=== PATIENT | male | born 1965 | race Caucasian/White ===

== ENCOUNTER → 2018-07-04 | Day surgery (SDC) | payer BC ==
[~2018-07-04] VITALS: Ht 175.3 cm; Wt 116.6 kg
[2018-07-04] VITALS (8 sets, daily range): BP systolic 82–139; BP diastolic 79–90
[~2018-07-04] MED LIST: EXFORGE 10-1601 EACH PO; FENTANYL CITRATE/PF 100MCG/2 ML INJ ONE; LEVOFLOXACIN 500MG/D5W 100ML 100 ML IV ONE; LIDOCAINE HCL 2% LOCAL 20 ML VIAL ONE; MIDAZOLAM HCL 2 MG/2 ML VIAL ONE; SODIUM CHLORIDE 0.9% 1000ML 2,000 ML ONE; SODIUM CHLORIDE 0.9% 500ML 500 ML ONE
--- NOTE | 2018-07-04 12:47 | Diagnostic Imaging Report ---
PROCEDURE:ULTRASOUND GUIDANCE FOR PROCEDURE COMPARISON:None. INDICATIONS:suprapubic catheter placement FINDINGS: Ultrasound was used to identify the bladder and an indwelling urethral Nunes catheter. Ultrasound guidance was used to place a primary suprapubic catheter. FINDINGS: Ultrasound guided placement of primary suprapubic catheter. Please refer to the suprapubic catheter procedural report for further details. Dictated by: KASIA FAROOQ M.D. on 07/04/2018 at 12:53 Electronically approved by: KASIA FAROOQ M.D. on 07/04/2018 at 12:53
--- NOTE | 2018-07-04 14:03 | Diagnostic Imaging Report ---
PROCEDURE:Suprapubic catheter placement with ultrasound and fluoroscopic guidance COMPARISON:None. INDICATIONS:Not provided. PIN INSERTER: Dr. Mirella Farooq MEDICATIONS: IV Levofloxacin 500 mg; Fentanyl and Versed per nursing administration records; 10 cc of 1% subcutaneous lidocaine SEDATION: Conscious sedation. Continuous hemodynamic monitoring was performed by the labor relations officer nursing. FINDINGS: Informed consent was obtained. Initial ultrasound demonstrated a partially decompressed bladder. The patient was prepped and draped in sterile fashion. Approximately 200 cc of normal saline was instilled through the urethral Nunes catheter. Repeat ultrasound demonstrated increased distension of the bladder and a satisfactory sonographic window. Local anesthesia with 1% subcutaneous lidocaine was administered. Subsequently, a 16 Fr suprapubic catheter was advanced via direct trochar technique into the bladder with ultrasound guidance. The inner trochar was removed. The balloon was inflated with 4 cc of normal saline. Contrast injection with fluoroscopic guidance demonstrated satisfactory positioning in the bladder. Satisfactory catheter positioning was also confirmed on ultrasound. The catheter was additionally secured with a Monocryl suture. Sterile dressing was placed. The catheter was connected to a urinary bag. The urethral Nunes catheter was removed upon conclusion of the procedure. CONCLUSION: Primary suprapubic catheter placement with ultrasound and fluoroscopic guidance as above. PLAN: Follow-up per Urology team. Catheter exchange in 2-3 months or as per protocol. Dictated by: MIRELLA FAROOQ M.D. on 07/04/2018 at 14:09 Electronically approved by: MIRELLA FAROOQ M.D. on 07/04/2018 at 14:09
== END | disposition home or self-care (01) ==
LOC: CATH LAB 08:22 → EDSTATUS 11:00
PROVIDERS: ATTEND Radiology Diagnostic Radiology
DX: R33.8 Other retention of urine (principal); N31.9 Neuromuscular dysfunction of bladder, unspecified
CPT/HCPCS: 51102; 76942; C1769; J1956; J2001; J2250; J7030; J7040; 77001

== ENCOUNTER 2018-07-18 17:31 | Emergency (ER) | payer BC ==
[~2018-07-18] VITALS: Ht 175.3 cm; Wt 113.4 kg
[~2018-07-18 17:31] MED LIST changes: -FENTANYL CITRATE/PF 100MCG/2 ML INJ ONE; -LEVOFLOXACIN 500MG/D5W 100ML 100 ML IV ONE; -LIDOCAINE HCL 2% LOCAL 20 ML VIAL ONE; -MIDAZOLAM HCL 2 MG/2 ML VIAL ONE; -SODIUM CHLORIDE 0.9% 1000ML 2,000 ML ONE; -SODIUM CHLORIDE 0.9% 500ML 500 ML ONE
[2018-07-18 18:58] LABS: BILIRUBIN,URINE NEGATIVE (NEGATIVE); CLARITY,URINE CLEAR (CLEAR); COLOR,URINE YELLOW (YELLOW); KETONES,URINE NEGATIVE (NEGATIVE); LEUKOCYTE ESTERASE ,URINE NEGATIVE (NEGATIVE); NITRITE,URINE NEGATIVE (NEGATIVE); PROTEIN,URINE DIPSTICK 2+ (NEGATIVE); URINE UROBILINOGEN 0.2 mg/dL (0.2 - 1)
[2018-07-18 19:21] LABS: RBC,URINE >50 /HPF (0-5)
[2018-07-18 19:31] VITALS: BP 134/83
== END 2018-07-18 19:33 | disposition home or self-care (01) ==
LOC: ER 17:31
DX: R33.9 Retention of urine, unspecified (principal); N31.9 Neuromuscular dysfunction of bladder, unspecified
CPT/HCPCS: 81001; 87086; 99284

== ENCOUNTER 2018-08-11 14:04 | Emergency (ER) | payer BC ==
[~2018-08-11] VITALS: Ht 175.3 cm; Wt 113.4 kg
[2018-08-11] MEDS ORDERED: DIATRIZOATE MEGL/DIATRIZOA SOD 30 ML BTL PO ONE (15:15)
--- NOTE | 2018-08-11 15:43 | Diagnostic Imaging Report ---
Frontal radiograph of the pelvis - 1 view HISTORY: Pain. Nunes catheter COMPARISON: None available. FINDINGS: Bones: No acute displaced fracture. Osseous alignment is within normal limits. Joints: Scattered degenerative change. Soft tissues: Catheter over the right pelvis and midline pelvis. The portion of the catheter over the midline pelvis is surrounded by contrast material likely within the urinary bladder. IMPRESSION: Catheter over the right pelvis and midline pelvis. The portion of the catheter over the midline pelvis is surrounded by contrast material likely within the urinary bladder. Signed by: Dr. Coy Layne M.D. on 08/11/2018 3:39 PM
[2018-08-11] MEDS ORDERED: LIDOCAINE 2% /EPINEPHRINE 20 ML SDV INJ ONE (16:25)
[2018-08-11] MEDS ORDERED: LIDOCAINE VISC 2% SOLN 15 ML UDC ONE (16:27)
[2018-08-11] MEDS ORDERED: LIDOCAINE/PRILOCAINE 2.5-2.5% KIT ONE (16:27)
[2018-08-11] MEDS ORDERED: LIDOCAINE JELLY 2% 10ML URO-JET TOP ONE (16:30)
[2018-08-11] MEDS ORDERED: LIDOCAINE VISC 2% SOLN 15 ML UDC PO ONE (16:30)
[2018-08-11] MEDS ORDERED: HYDROCODONE/APAP 10MG-325MG TAB PO ONE (17:00)
[2018-08-11] MEDS ORDERED: KETOROLAC TROMETHAMINE 60 MG/2 ML VIAL IM ONE (17:00)
[2018-08-11 17:35] VITALS: BP 125/83
[2018-08-11 17:57] LABS: BILIRUBIN,URINE NEGATIVE (NEGATIVE); CLARITY,URINE SL CLOUDY (CLEAR); COLOR,URINE YELLOW (YELLOW); KETONES,URINE NEGATIVE (NEGATIVE); LEUKOCYTE ESTERASE ,URINE TRACE (NEGATIVE); NITRITE,URINE NEGATIVE (NEGATIVE); PROTEIN,URINE DIPSTICK 1+ (NEGATIVE); URINE UROBILINOGEN 0.2 mg/dL (0.2 - 1)
[2018-08-11 17:58] LABS: WBC,URINE (MAN) 0-5 /HPF (0-5)
== END 2018-08-11 18:07 | disposition home or self-care (01) ==
LOC: ER 14:04
DX: Z48.00 Encounter for change or removal of nonsurgical wound dressing (principal)
CPT/HCPCS: 51702; 72170; 81001; 99283; J1885; J2001

== ENCOUNTER 2018-11-05 05:48 | Emergency (ER) | payer OTHER ==
[~2018-11-05] VITALS: Ht 175.3 cm; Wt 113.4 kg
[2018-11-05] MEDS ORDERED: SODIUM CHLORIDE 0.9% 1000ML 1,000 ML IV ONE (06:15)
[2018-11-05] MEDS ORDERED: ACETAMINOPHEN 1000 MG/100 ML IV ONE (06:15)
[2018-11-05 06:31] LABS: BASOPHILS % 0.1 % (0.0-1.0); EOSINOPHILS % 0.5 % (0.0-6.0); HEMATOCRIT 40.4 % (38.2-49.6); HEMOGLOBIN 14.4 g/dL (14.0-18.0); LYMPHOCYTES # (AUTO) 1.5 (1.0-3.2); LYMPHOCYTES % 19.8 % (18.0-39.1); MEAN CORPUSCULAR HEMOGLOBIN 31.3 pg (28-32); MEAN CORPUSCULAR HGB CONC 35.6 g/dL (31-35); MEAN CORPUSCULAR VOLUME 87.8 fL (81-99); MONOCYTES # (AUTO) 0.4 (0.2-0.8); MONOCYTES % 5.7 % (4.4-11.3); NEUTROPHILS # (AUTO) 5.4 (2.1-6.9); NEUTROPHILS % 73.4 % (38.7-80.0); PLATELET COUNT 223 x10e3/uL (140-360); RED CELL DISTRIBUTION WIDTH 11.9 % (11.7-14.4)
[2018-11-05 06:43] LABS: STREPTOCOCCUS GRP A ANTIGEN NEGATIVE (NEGATIVE)
[2018-11-05 06:49] LABS: ALANINE AMINOTRANSFERASE 30 IU/L (0-55); ALBUMIN 3.4 g/dL (3.5-5.0); ALBUMIN/GLOBULIN RATIO 0.8 (0.8-2.0); ALKALINE PHOSPHATASE 54 IU/L (40-150); ANION GAP 17.2 mmol/L (8-16); BLOOD UREA NITROGEN 12 mg/dL (7-26); BUN/CREATININE RATIO 10 (6-25); CALCIUM 9.3 mg/dL (8.4-10.2); CARBON DIOXIDE 22 mmol/L (22-29); CHLORIDE 101 mmol/L (98-107); CREATININE, SERUM 1.16 mg/dL (0.72-1.25); EST GLOMERULAR FILTRATION RATE > 60 ML/MIN (60-); GLUCOSE 137 mg/dL (74-118); POTASSIUM 4.2 mmol/L (3.5-5.1); SODIUM 136 mmol/L (136-145)
[2018-11-05 06:50] LABS: CLARITY,URINE CLOUDY (CLEAR); COLOR,URINE YELLOW (YELLOW); LEUKOCYTE ESTERASE ,URINE 1+ (NEGATIVE); NITRITE,URINE POSITIVE (NEGATIVE); PROTEIN,URINE DIPSTICK 2+ (NEGATIVE)
[2018-11-05 06:51] LABS: BILIRUBIN,URINE NEGATIVE (NEGATIVE); KETONES,URINE 1+ (NEGATIVE); URINE UROBILINOGEN 0.2 mg/dL (0.2 - 1)
[2018-11-05 06:54] LABS: INFLUENZAE A&B ANTIGEN (RAPID) POSITIVE FLU A (NEGATIVE)
[2018-11-05 06:55] LABS: BACTERIA,URINE MODERATE /HPF; EPITHELIAL CELLS,URINE FEW /LPF; MUCUS,URINE FEW (RARE); RBC,URINE 21-50 /HPF (0-5); WBC,URINE (MAN) 21-50 /HPF (0-5)
[2018-11-05 06:59] LABS: CREATINE KINASE 674 IU/L (30-200)
[2018-11-05 07:01] LABS: B-TYPE NATRIURETIC PEPTIDE2 < 10.0 pg/mL (0-100)
--- NOTE | 2018-11-05 07:02 | Diagnostic Imaging Report ---
EXAMINATION: CHEST 2 VIEWS INDICATION: Cough, congestion, fever. COMPARISON: None FINDINGS: PA and lateral views TUBES and LINES: None. LUNGS: Lungs are well inflated. Bibasilar reticular opacities. There is no evidence of consolidative pneumonia or pulmonary edema. PLEURA: No pleural effusion or pneumothorax. HEART AND MEDIASTINUM: The cardiomediastinal silhouette is unremarkable. BONES AND SOFT TISSUES: No acute osseous lesion. Soft tissues are unremarkable. UPPER ABDOMEN: No free air under the diaphragm. There are cholecystectomy clips. IMPRESSION: Bibasilar reticular opacities may represent atelectasis or atypical infection in the appropriate clinical setting. Signed by: DR. Diaz Paredes MD on 11/05/2018 6:59 AM
== END 2018-11-05 07:55 | disposition home or self-care (01) ==
LOC: ER 05:48
DX: R50.9 Fever, unspecified (principal); R05 Cough; J11.1 Influenza due to unidentified influenza virus with other respiratory manifestations; N30.91 Cystitis, unspecified with hematuria; I10 Essential (primary) hypertension
CPT/HCPCS: 36415; 71046; 80053; 81001; 82550; 82553; 83518; 83605; 83735; 83880; 84484; 85025; 87040; 87070; 87086; 87186; 87400; 93005; 99284; J0131; J7030

== ENCOUNTER 2019-05-23 00:50 | Emergency (ER) | payer OTHER ==
[~2019-05-23] VITALS: Ht 175.3 cm; Wt 113.4 kg
[2019-05-23] MEDS ORDERED: CEFEPIME 2 GM/NS 0.9% 100 ML 100 ML IV ONE (01:15)
[2019-05-23 03:51] VITALS: BP 128/77
== END 2019-05-23 03:54 | disposition home or self-care (01) ==
LOC: ER 00:50
DX: R30.0 Dysuria (principal); N30.90 Cystitis, unspecified without hematuria
CPT/HCPCS: 99282

== ENCOUNTER 2019-06-18 19:20 | Inpatient (IN) | payer BC, OTHER ==
[~2019-06-18] VITALS: Ht 154.7 cm; Wt 113.4 kg
[2019-06-18] MEDS ORDERED: MEROPENEM 1GM 100 ML IV ONE (20:00)
[2019-06-18 20:12] LABS: BASOPHILS % 0.3 % (0.0-1.0); EOSINOPHILS # (AUTO) 0.2 (0.0-0.4); EOSINOPHILS % 1.7 % (0.0-6.0); HEMATOCRIT 42.3 % (38.2-49.6); HEMOGLOBIN 15.2 g/dL (14.0-18.0); LYMPHOCYTES # (AUTO) 3.9 (1.0-3.2); LYMPHOCYTES % 40.5 % (18.0-39.1); MEAN CORPUSCULAR HEMOGLOBIN 30.6 pg (28-32); MEAN CORPUSCULAR HGB CONC 35.9 g/dL (31-35); MEAN CORPUSCULAR VOLUME 85.3 fL (81-99); MONOCYTES # (AUTO) 0.7 (0.2-0.8); MONOCYTES % 6.9 % (4.4-11.3); NEUTROPHILS # (AUTO) 4.8 (2.1-6.9); NEUTROPHILS % 50.3 % (38.7-80.0); PLATELET COUNT 258 x10e3/uL (140-360); RED BLOOD COUNT 4.96 x10e6/uL (4.3-5.7); RED CELL DISTRIBUTION WIDTH 11.9 % (11.7-14.4)
[2019-06-18 20:24] LABS: BILIRUBIN,URINE NEGATIVE (NEGATIVE); CLARITY,URINE TURBID (CLEAR); COLOR,URINE YELLOW (YELLOW); KETONES,URINE NEGATIVE (NEGATIVE); LEUKOCYTE ESTERASE ,URINE LARGE (NEGATIVE); NITRITE,URINE POSITIVE (NEGATIVE); PROTEIN,URINE DIPSTICK 2+ (NEGATIVE); URINE UROBILINOGEN 0.2 mg/dL (0.2 - 1)
[2019-06-18 20:33] LABS: ALANINE AMINOTRANSFERASE 28 IU/L (0-55); ALBUMIN 3.8 g/dL (3.5-5.0); ALBUMIN/GLOBULIN RATIO 1.1 (0.8-2.0); ALKALINE PHOSPHATASE 66 IU/L (40-150); ANION GAP 17.1 mmol/L (8-16); BLOOD UREA NITROGEN 10 mg/dL (7-26); BUN/CREATININE RATIO 10 (6-25); CALCIUM 9.4 mg/dL (8.4-10.2); CARBON DIOXIDE 22 mmol/L (22-29); CHLORIDE 101 mmol/L (98-107); CREATININE, SERUM 0.99 mg/dL (0.72-1.25); EST GLOMERULAR FILTRATION RATE > 60 ML/MIN (60-); GLUCOSE 209 mg/dL (74-118); POTASSIUM 4.1 mmol/L (3.5-5.1); SODIUM 136 mmol/L (136-145)
[2019-06-18 20:38] LABS: WBC,URINE (MAN) >50 /HPF (0-5)
[2019-06-18 20:39] LABS: AMORPHOUS SEDIMENT,URINE FEW (FEW); BACTERIA,URINE MANY /HPF
[2019-06-18] MEDS ORDERED: SODIUM CHLORIDE 0.9% 1000ML 1,000 ML ONE (20:58)
[2019-06-18] MEDS ORDERED: AMLODIPINE-BEN1 EAC3 PO (20:59)
[2019-06-18] MEDS ORDERED: DEXTROSE 50% SYRINGE 50 ML IV PRN (21:00)
[2019-06-18] MEDS ORDERED: ONDANSETRON HCL INJ 2MG/ML 2ML 2 MG/ML VIAL IV PRN (21:00)
[2019-06-18] MEDS ORDERED: MORPHINE SULFATE 2 MG/ML SYR 1ML IV PRN (21:00)
[2019-06-18] MEDS: SODIUM CHLORIDE 0.9% 1000ML 1,000 ML IV SCH (21:00)
[2019-06-18] MEDS ORDERED: SODIUM CHLORIDE 0.9% 1000ML 1,000 ML IV SCH (21:00)
[2019-06-18] MEDS ORDERED: ACETAMINOPHEN 325 MG TAB PO PRN (21:00)
[2019-06-18] MEDS: MEROPENEM 1GM 100 ML IV SCH (21:19)
[2019-06-18] MEDS: INSULIN REGULAR, HUMAN 100 UNIT/1 ML 3ML VIAL SQ SCH (21:22)
[2019-06-18 21:39] VITALS: BP 140/75
--- NOTE | 2019-06-18 22:30 | NUR ---
patient arrived from ER. patient is stable, patient welcomed and offered a bed, patient here for gu related disorders, consults done and confirmed by channing Martines, Patient is currently stable will continue to monitor.
[2019-06-18 23:30] VITALS: BP 140/75
[2019-06-19] VITALS (8 sets, daily range): BP systolic 118–135; BP diastolic 63–74
[2019-06-19 05:37] LABS: BASOPHILS % 0.3 % (0.0-1.0); EOSINOPHILS # (AUTO) 0.2 (0.0-0.4); EOSINOPHILS % 2.3 % (0.0-6.0); HEMATOCRIT 38.2 % (38.2-49.6); HEMOGLOBIN 13.5 g/dL (14.0-18.0); LYMPHOCYTES # (AUTO) 3.3 (1.0-3.2); LYMPHOCYTES % 42.3 % (18.0-39.1); MEAN CORPUSCULAR HEMOGLOBIN 30.8 pg (28-32); MEAN CORPUSCULAR HGB CONC 35.3 g/dL (31-35); MONOCYTES # (AUTO) 0.6 (0.2-0.8); MONOCYTES % 8.1 % (4.4-11.3); NEUTROPHILS # (AUTO) 3.7 (2.1-6.9); NEUTROPHILS % 46.7 % (38.7-80.0); PLATELET COUNT 200 x10e3/uL (140-360); RED BLOOD COUNT 4.39 x10e6/uL (4.3-5.7); RED CELL DISTRIBUTION WIDTH 11.9 % (11.7-14.4)
[2019-06-19] MEDS: MEROPENEM 1GM 100 ML IV SCH ×3 (05:45→22:00)
[2019-06-19 06:07] LABS: ALANINE AMINOTRANSFERASE 25 IU/L (0-55); ALBUMIN 3.2 g/dL (3.5-5.0); ALBUMIN/GLOBULIN RATIO 1.1 (0.8-2.0); ALKALINE PHOSPHATASE 49 IU/L (40-150); ANION GAP 12.1 mmol/L (8-16); BLOOD UREA NITROGEN 10 mg/dL (7-26); BUN/CREATININE RATIO 11 (6-25); CALCIUM 8.8 mg/dL (8.4-10.2); CARBON DIOXIDE 26 mmol/L (22-29); CHLORIDE 104 mmol/L (98-107); EST GLOMERULAR FILTRATION RATE > 60 ML/MIN (60-); GLUCOSE 145 mg/dL (74-118); POTASSIUM 4.1 mmol/L (3.5-5.1); SODIUM 138 mmol/L (136-145)
--- NOTE | 2019-06-19 07:11 | NUR ---
Patient endorsed to next shift for continuity of care.
[2019-06-19] MEDS: INSULIN REGULAR, HUMAN 100 UNIT/1 ML 3ML VIAL SQ SCH ×4 (07:30→21:00)
[2019-06-19] MEDS ORDERED: MORPHINE SULFATE 2 MG/ML SYR 1ML IV PRN (08:15)
[2019-06-19] MEDS ORDERED: HYDRALAZINE HCL 20 MG/ML VIAL IV PRN (08:15)
[2019-06-19] MEDS ORDERED: ACETAMINOPHEN/CODEINE 300MG - 30MG TAB PO PRN (08:15)
[2019-06-19] MEDS ORDERED: ACETAMINOPHEN 325 MG TAB PO PRN (08:15)
[2019-06-19] MEDS: BENAZEPRIL HCL 10 MG TAB PO SCH (08:57)
[2019-06-19] MEDS: GABAPENTIN 100 MG CAP PO SCH ×2 (08:58→17:10)
[2019-06-19] MEDS: AMLODIPINE BESYLATE 10 MG TAB PO SCH (08:58)
--- NOTE | 2019-06-19 10:30 | NUR ---
patient tolerated PICC line placement, not in any distress, call light in reach
--- NOTE | 2019-06-19 10:47 | Diagnostic Imaging Report ---
EXAMINATION: CHEST XRAY LINE PLACEMENT INDICATION: Line placement COMPARISON: Chest radiograph of 11/05/2018 FINDINGS: TUBES and LINES: Right PICC line terminates in the SVC. LUNGS: The lung volumes are normal. No focal consolidation or pulmonary edema. PLEURA: No pleural effusion or pneumothorax. HEART AND MEDIASTINUM: The cardiomediastinal silhouette is normal in size and contour. BONES AND SOFT TISSUES: No acute fracture or dislocation. UPPER ABDOMEN: No free air under the diaphragm. IMPRESSION: Right PICC line terminates in SVC. No focal pneumonia or pulmonary edema. Signed by: Verna Bagley MD on 06/19/2019 10:43 AM
--- NOTE | 2019-06-19 14:10 | Consultation ---
DATE OF CONSULTATION: 06/19/2019 Urology Consultation Note REASON FOR CONSULTATION: Gross hematuria, SP tube. HISTORY OF PRESENT ILLNESS: Mr. Bernard is a very pleasant 54-year-old male, patient of mine. On the day of admission, the patient began experiencing gross hematuria around the suprapubic tube. He went to sleep, woke up and saw blood coming around it. The bleeding stopped, however, subsequent to that there was purulent drainage around the suprapubic tube. PAST MEDICAL HISTORY: Notable for hypertension, diabetes, multiple urinary tract infections, diverticulitis, neurogenic bladder, and BPH. PAST SURGICAL HISTORY: Status post cholecystectomy and suprapubic tube. MEDICATIONS: Please see MAR. ALLERGIES: NKDA. SOCIAL HISTORY: He denied smoking or drinking. FAMILY HISTORY: Denied urologic stones or malignancies. REVIEW OF SYSTEMS: Noncontributory other than problems mentioned above for 12 organ systems. PHYSICAL EXAMINATION: GENERAL: Middle-aged male, in no acute distress. VITAL SIGNS: Currently, his temperature is 96.3, pulse 74, respirations 19, and blood pressure 127/71. HEENT: Sclerae anicteric. NECK: Supple. BACK: Without costovertebral angle tenderness bilaterally. ABDOMEN: Soft. It is nontender. It is nondistended. No palpable mass. No palpable hernias. No palpable adenopathy. : Normal male external genitalia. Suprapubic tube draining clear yellow urine. EXTREMITIES: No edema. NEUROLOGIC: Moves all 4 extremities. PSYCH: Alert and appropriate. SKIN: Intact. Normal color. PERTINENT LABORATORY DATA: Hemoglobin 13, hematocrit 38, platelet count 200,000, and white cell count 7870. Sodium 138, potassium 4.1, chloride 104, bicarb 26, BUN 10, creatinine 0.9, and glucose 145. Urinalysis revealing 11-20 reds, greater than 50 whites, 2+ protein. IMPRESSION: 1. Gross hematuria. 2. BPH. 3. Neurogenic bladder. 4. Suprapubic tube. 5. Proteinuria. PLAN: The patient will begin broad-spectrum antibiotics based on prior culture data, we will adjust empirically as culture specific results are available. Once on culture specific antibiotics, the patient may be safely discharged to home. Thank you for allowing me to participate in the care the present care of my patient. We will be happy to follow along with you. MD MAIRA Solano/JERRY /[id number]
--- NOTE | 2019-06-19 14:26 | NUR ---
Nutrition Screen Note RD Recommendation for Physician: - Continue 1800 ADA diet - BG and insulin management per MD Plan of Care: RD following, monitoring for tolerance and adequacy Nutrition reason for involvement: Nutrition Risk Trigger- MST Primary Diagnose(s): leaking kimble catheter, UTI PMH: neurogenic bladder, diverticulitis, cholecystectomy, HTN, DM Ht: 60.9 in Wt: 250 lb BMI: 47.4 kg/m2 IBW: [address] Assessment: 06/19: 54 YOM admitted for leaking kimble catheter and UTI. Pt seen today per MST score. 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 Pt denies wt loss, reports UBW of 250#- no wt loss noted. Pt denies any N/V/C/D or difficulties chewing or swallowing. No questions or concerns at time of visit. Pt discussed during am rounds. Chart reviewed. Labs and meds reviewed. Will monitor and continue to follow. Current Diet: 1800 ADA Malnutrition Evaluation (06/19/19) The patient does not meet criteria for a specified degree of malnutrition at this time. Will re-evaluate at follow-up as appropriate. Diet Education Needs Assessment: Diet education not indicated. Nutrition Care Level: Low Signed: Carissa Negrete RD, LD, [facility]
[2019-06-19] MEDS: SODIUM CHLORIDE 0.9% 1000ML 1,000 ML IV SCH (18:08)
--- NOTE | 2019-06-19 19:05 | NUR ---
Bedside report with morning nurse. Pt alert and orient to name. Sitting in bed. Denies pain at this time. Family at bedside. Call light within reach. Will continue to monitor.
--- NOTE | 2019-06-19 19:06 | Consultation ---
DATE OF CONSULTATION: REASON FOR CONSULTATION: UTI with multidrug resistant. HISTORY OF PRESENT ILLNESS: This patient who is a very pleasant 54-year-old white male, who has history of neurogenic bladder, history of recurrent UTI. The patient comes into the emergency room because he had blood coming from the suprapubic catheter site. The patient has been having some suprapubic pain and not feeling well. The patient comes into the emergency room, blood cultures obtain, urine culture obtain, PICC line started. The patient was given meropenem. He is telling me since he started the meropenem, he is feeling better. There was no fever, no chills. Also, his pain is better. He is telling me he had recurrent UTI. He had a suprapubic catheter a year and half for neurogenic bladder, but since then he has been getting recurrent infection with suprapubic pain, discolored urine becoming pus type, several oral antibiotic as outpatient. PAST MEDICAL HISTORY: Diabetes, obesity, neurogenic bladder. PAST SURGICAL HISTORY: Denies. ALLERGIES: NKA. SOCIAL HISTORY: There is no smoking, drug abuse, or alcohol abuse. FAMILY HISTORY: Otherwise diabetes. REVIEW OF SYSTEMS: HEENT: Negative. PULMONARY: Negative. CARDIAC: Negative. : Negative. SKIN: There is no other rash. PHYSICAL EXAMINATION: GENERAL: He is currently alert, oriented, does not seem to be in acute distress. VITAL SIGNS: Stable, currently afebrile. HEENT: Not icteric. NECK: Supple. No JVD. No carotid, no thyromegaly. CHEST: Clear bilateral. HEART: S1, S2. No S3, S4, or murmur. ABDOMEN: Soft. Bowel sounds present. No tenderness. EXTREMITIES: No edema. SKIN: There is no rash. IMPRESSION: 1. Urinary tract infection, probably multidrug resistant. Continue with meropenem. Await culture sensitivity. 2. Obesity. 3. Neurogenic bladder. 4. Suprapubic catheter. I discussed with the patient that he is at risk for bacteriuria and his urine culture was positive, but apparently symptomatic now. We will follow up with the cultures. We will see him as an outpatient. MD COOKIE James/JERRY /[id number]
[2019-06-20] VITALS (8 sets, daily range): BP systolic 121–139; BP diastolic 67–77
[2019-06-20] MEDS ORDERED: STARLIX60 MG (03:36)
--- NOTE | 2019-06-20 03:36 | NUR ---
Medication profile updated per Pt's. New medication added to reconciliation list.
[2019-06-20 03:47] LABS: BASOPHILS % 0.5 % (0.0-1.0); EOSINOPHILS # (AUTO) 0.1 (0.0-0.4); EOSINOPHILS % 1.6 % (0.0-6.0); HEMATOCRIT 38.1 % (38.2-49.6); HEMOGLOBIN 13.6 g/dL (14.0-18.0); LYMPHOCYTES # (AUTO) 3.1 (1.0-3.2); LYMPHOCYTES % 36.5 % (18.0-39.1); MEAN CORPUSCULAR HEMOGLOBIN 30.7 pg (28-32); MEAN CORPUSCULAR HGB CONC 35.7 g/dL (31-35); MONOCYTES # (AUTO) 0.6 (0.2-0.8); MONOCYTES % 7.3 % (4.4-11.3); NEUTROPHILS # (AUTO) 4.5 (2.1-6.9); NEUTROPHILS % 53.9 % (38.7-80.0); PLATELET COUNT 211 x10e3/uL (140-360); RED BLOOD COUNT 4.43 x10e6/uL (4.3-5.7); RED CELL DISTRIBUTION WIDTH 11.9 % (11.7-14.4)
[2019-06-20 04:00] LABS: ANION GAP 12.4 mmol/L (8-16); BLOOD UREA NITROGEN 11 mg/dL (7-26); BUN/CREATININE RATIO 12 (6-25); CARBON DIOXIDE 26 mmol/L (22-29); CHLORIDE 105 mmol/L (98-107); CREATININE, SERUM 0.92 mg/dL (0.72-1.25); EST GLOMERULAR FILTRATION RATE > 60 ML/MIN (60-); GLUCOSE 131 mg/dL (74-118); POTASSIUM 4.4 mmol/L (3.5-5.1); SODIUM 139 mmol/L (136-145)
[2019-06-20] MEDS: MEROPENEM 1GM 100 ML IV SCH ×3 (06:00→21:36)
--- NOTE | 2019-06-20 06:38 | NUR ---
Pt lying in bed snoring with eyes closed. Lying in bed HOB flat. No s/s or pain or discomfort. Family at bedside. Call boggs within reach.
[2019-06-20] MEDS: INSULIN REGULAR, HUMAN 100 UNIT/1 ML 3ML VIAL SQ SCH ×4 (07:50→20:30)
[2019-06-20] MEDS: AMLODIPINE BESYLATE 10 MG TAB PO SCH (08:19)
[2019-06-20] MEDS: BENAZEPRIL HCL 10 MG TAB PO SCH (08:19)
[2019-06-20] MEDS: GABAPENTIN 100 MG CAP PO SCH ×2 (08:19→17:15)
[2019-06-20] MEDS ORDERED: GABAPENTIN100 MG PO (08:39)
[2019-06-20] MEDS: SODIUM CHLORIDE 0.9% 1000ML 1,000 ML IV SCH (13:42)
--- NOTE | 2019-06-20 14:20 | NUR ---
JAVIER SPOKE WITH MALI AT DR BARLOW'S OFFICE REGARDING IV ABX ARRANGEMENTS SHE HAS FAXED CLINICAL INFORMATION TO [facility] AND IS AWAITING CALL BACK WITH AUTH SHE EXPECTS AUTH BY 3:30 TODAY GAVE PT A MAP OF DR BARLOW'S OFFICE ALONG WITH ADDRESS AND PHONE NUMBER AWAIT APPT TIME
--- NOTE | 2019-06-20 15:40 | NUR ---
Bladder kwok performed. 80mL recorded. Irrigated according to Dr. Rai's instructions. Catheter is draining slowly with small pieces of white sediment noted.
--- NOTE | 2019-06-20 15:47 | NUR ---
CALL BACK FROM MALI AT DR BARLOW'S OFFICE APPROVAL FOR IV ABX FROM INS REC'D APPT TOMORROW AT 2PM PT AWARE AND AGREEABLE NURSE TINY NOTIFIED
[2019-06-21 00:04] VITALS: BP 125/74
[2019-06-21] MEDS: MEROPENEM 1GM 100 ML IV SCH ×2 (05:27→13:12)
[2019-06-21 05:43] VITALS: BP 129/75
--- NOTE | 2019-06-21 07:10 | NUR ---
PATIENT IS AWAKE, ALERT, AND IN STABLE CONDITION WITH NO S/S OF RESPIRATORY DISTRESS. PATIENT C/O 5/10 SUPRAPUBIC SITE PAIN. IV FLUIDS INFUSING. PATIENT DUE TO HAVE SUPRAPUBIC CATHETER CHANGED BY DR. LOVELACE TODAY. CALL LIGHT IS WITHIN REACH, PATIENT INSTRUCTED TO CALL FOR ASSISTANCE NEEDED.
[2019-06-21] MEDS: INSULIN REGULAR, HUMAN 100 UNIT/1 ML 3ML VIAL SQ SCH ×2 (07:30→11:30)
[2019-06-21 08:15] VITALS: BP 142/85
[2019-06-21] MEDS: BENAZEPRIL HCL 10 MG TAB PO SCH (08:32)
[2019-06-21] MEDS: AMLODIPINE BESYLATE 10 MG TAB PO SCH (08:32)
[2019-06-21] MEDS: GABAPENTIN 100 MG CAP PO SCH (08:33)
[2019-06-21] MEDS: SODIUM CHLORIDE 0.9% 1000ML 1,000 ML IV SCH (08:34)
[2019-06-21 09:20] VITALS: BP 142/85
[2019-06-21] MEDS ORDERED: ONDANSETRON HCL 4 MG ORAL DISINTEGRATING TAB PO PRN (09:30)
[2019-06-21 12:44] VITALS: BP 112/71
[2019-06-21] MEDS ORDERED: TYLENOL WITH C1 EACH PO (15:56)
[2019-06-21 16:25] VITALS: BP 121/77
--- NOTE | 2019-06-21 17:21 | NUR ---
PATIENT DISCHARGE HOME- PATIENT OFF THE UNIT AT 1646 PER WHEELCHAIR ACCOMPANIED PCT TO THE FRONT LOBBY. PATIENT IS IN STABLE CONDITION WITH NO S/S OF RESPIRATORY DISTRESS. NO PAIN VOICED. IV PICC LINE INTACT AND SALINE LOCKED. SUPRAPUBIC CATH CHANGED BY DR. LOVELACE TODAY, 06/21/19 TO 24F; DRY DRESSING APPLIED AROUND SUPRAPUBIC CATH SITE. DISCHARGE TEACHING, INSTRUCTIONS, AND MEDICATIONS GIVEN TO THE PATIENT. ALL PERSONAL ITEMS TAKEN WITH THE PATIENT AND HIS FAMILY FRIEND. PATIENT AWARE OF DOCTOR APPOINTMENT TOMORROW, 06/22/19, AT DR. BARLOW'S OFFICE AT 9AM.
--- NOTE | 2019-06-22 05:51 | Discharge Summary ---
ADMISSION DIAGNOSES: Urinary tract infection with sepsis, failed outpatient treatment; type 2 diabetes; neurogenic bladder with chronic suprapubic catheter; hypertension; morbid obesity. DISCHARGE DIAGNOSES: Urinary tract infection with sepsis, failed outpatient treatment; type 2 diabetes; neurogenic bladder with chronic suprapubic catheter; hypertension; morbid obesity; Pseudomonas aeruginosa and Enterococcus urinary tract infection, present on admission. HISTORY: The patient has a history of type 2 diabetes, hypertension, frequent UTIs, and diverticulitis as well as neurogenic bladder. SURGICAL HISTORY: Cholecystectomy and suprapubic catheter placement. FAMILY HISTORY: The patient's grandmother and grandfather, cousin, aunts, and uncles have diabetes. The patient's mother had cancer and both of the patient's grandfathers had a stroke. SOCIAL HISTORY: Noncontributory. HOSPITAL COURSE: A 54-year-old male with history of frequent UTIs, admits with complaints of suprapubic pain and bleeding that worsened over the last few months. He finished 10 days of antibiotics just 2 weeks ago for UTI, but they did not help. His urine remains dark with sediment. On admission, the patient was started on Merrem. Urology was consulted and the patient's catheter was replaced. A PICC line was placed in the right upper arm due to failed outpatient treatment, ID was consulted, who agreed with Merrem antibiotics. Urine culture came back positive for Pseudomonas aeruginosa and Enterococcus. The patient will continue his treatment of Merrem in Dr. Fisher's office for at least 2 more additional weeks. The patient understands discharge instructions and agrees to plan. He has an appointment with Dr. Fisher tomorrow for IV antibiotics. He will follow up with primary care and Dr. Bell in 1 to 2 weeks. The patient agrees to plan. Vital signs stable, the patient afebrile. Dictated by Eun Lisa NP MD VENUS Hinojosa/JERRY /[id number]
== END 2019-06-21 16:48 | disposition home or self-care (01) | DRG 698 ==
LOC: ER 19:20 → ERHOLD 21:27 → MED/SURG3 21:43
PROVIDERS: ADMIT Internal Medicine; ATTEND Internal Medicine
PROC: 02HV33Z Insertion of Infusion Device into Superior Vena Cava, Percutaneous Approach (ICD-10-PCS; principal; 2019-06-19)
PROC: 0T2BX0Z Change Drainage Device in Bladder, External Approach (ICD-10-PCS; 2019-06-21)
DX: T83.510A Infection and inflammatory reaction due to cystostomy catheter, initial encounter (principal); A41.9 Sepsis, unspecified organism; N39.0 Urinary tract infection, site not specified; Z68.42 Body mass index [BMI] 45.0-49.9, adult; Y84.6 Urinary catheterization as the cause of abnormal reaction of the patient, or of later complication, without mention of misadventure at the time of the procedure; E66.01 Morbid (severe) obesity due to excess calories; N31.9 Neuromuscular dysfunction of bladder, unspecified; E11.65 Type 2 diabetes mellitus with hyperglycemia; N40.0 Benign prostatic hyperplasia without lower urinary tract symptoms; R31.0 Gross hematuria; I10 Essential (primary) hypertension; B96.5 Pseudomonas (aeruginosa) (mallei) (pseudomallei) as the cause of diseases classified elsewhere; B95.2 Enterococcus as the cause of diseases classified elsewhere; Z83.3 Family history of diabetes mellitus; Z80.9 Family history of malignant neoplasm, unspecified; Z82.3 Family history of stroke; Z79.84 Long term (current) use of oral hypoglycemic drugs
CPT/HCPCS: 36415; 36569; 71045; 80048; 80053; 81001; 82948; 83036; 85025; 87040; 87086; 87186; 96361; 99284; J1817; J2270; J2405; J7030

== ENCOUNTER 2019-07-25 22:59 | Inpatient (IN) | payer OTHER ==
[~2019-07-25] VITALS: Ht 175.3 cm; Wt 109.1 kg
[~2019-07-25 22:59] MED LIST changes: +AMLODIPINE-BEN1 EAC3 PO; +GABAPENTIN100 MG PO; +STARLIX60 MG; +TYLENOL WITH C1 EACH PO
[2019-07-26] VITALS (8 sets, daily range): BP systolic 105–141; BP diastolic 70–82
[2019-07-26 00:21] LABS: BILIRUBIN,URINE SMALL (NEGATIVE); CLARITY,URINE CLOUDY (CLEAR); COLOR,URINE ORANGE (YELLOW); KETONES,URINE NEGATIVE (NEGATIVE); LEUKOCYTE ESTERASE ,URINE MODERATE (NEGATIVE); NITRITE,URINE POSITIVE (NEGATIVE); URINE UROBILINOGEN 4 mg/dL (0.2 - 1)
[2019-07-26 00:22] LABS: PROTEIN,URINE DIPSTICK 3+ (NEGATIVE)
[2019-07-26 00:43] LABS: BACTERIA,URINE MODERATE /HPF; EPITHELIAL CELLS,URINE RARE /LPF; WBC,URINE (MAN) >50 /HPF (0-5)
[2019-07-26 00:50] LABS: BASOPHILS % 0.5 % (0.0-1.0); EOSINOPHILS # (AUTO) 0.2 (0.0-0.4); EOSINOPHILS % 2.5 % (0.0-6.0); HEMATOCRIT 39.3 % (38.2-49.6); HEMOGLOBIN 13.9 g/dL (14.0-18.0); LYMPHOCYTES # (AUTO) 1.9 (1.0-3.2); LYMPHOCYTES % 23.1 % (18.0-39.1); MEAN CORPUSCULAR HEMOGLOBIN 30.5 pg (28-32); MEAN CORPUSCULAR HGB CONC 35.4 g/dL (31-35); MEAN CORPUSCULAR VOLUME 86.2 fL (81-99); MONOCYTES # (AUTO) 0.5 (0.2-0.8); MONOCYTES % 6.5 % (4.4-11.3); NEUTROPHILS # (AUTO) 5.4 (2.1-6.9); PLATELET COUNT 245 x10e3/uL (140-360); RED BLOOD COUNT 4.56 x10e6/uL (4.3-5.7); RED CELL DISTRIBUTION WIDTH 12.1 % (11.7-14.4)
[2019-07-26 01:01] LABS: ALANINE AMINOTRANSFERASE 29 IU/L (0-55); ALBUMIN 3.7 g/dL (3.5-5.0); ALBUMIN/GLOBULIN RATIO 1.1 (0.8-2.0); ALKALINE PHOSPHATASE 65 IU/L (40-150); ANION GAP 13.4 mmol/L (8-16); BLOOD UREA NITROGEN 12 mg/dL (7-26); BUN/CREATININE RATIO 11 (6-25); CALCIUM 9.7 mg/dL (8.4-10.2); CARBON DIOXIDE 24 mmol/L (22-29); CHLORIDE 102 mmol/L (98-107); CREATININE, SERUM 1.13 mg/dL (0.72-1.25); EST GLOMERULAR FILTRATION RATE > 60 ML/MIN (60-); GLUCOSE 218 mg/dL (74-118); POTASSIUM 3.4 mmol/L (3.5-5.1); SODIUM 136 mmol/L (136-145)
--- NOTE | 2019-07-26 01:55 | NUR ---
PT AWAKE ALERT SKIN W/D RESP NONLAB. NAD NOTED. TAKEN TO ROOM 9 FOR EVAL
[2019-07-26] MEDS ORDERED: METHENAMINE HIPP1 GM PO (02:50)
[2019-07-26] MEDS ORDERED: ONDANSETRON HCL INJ 2MG/ML 2ML 2 MG/ML VIAL IV PRN (03:00)
[2019-07-26] MEDS ORDERED: DEXTROSE 50% SYRINGE 50 ML IV PRN (03:00)
[2019-07-26] MEDS ORDERED: MORPHINE SULFATE INJ 4 MG/ML INJ 1ML IV PRN ×2 (03:00→06:15)
--- NOTE | 2019-07-26 03:50 | NUR ---
received pt from ER to room 215, AAOx3, resp even and unlabored, c/o pain 06/30 to suprapubic area, pain medication given, suprapubic cath draining orange cloudy urine, NS@125 via right AC 20G, ambulatory by self, skin intact, family at bedside, bed in lowest and locked position with call light in reach
[2019-07-26] MEDS: SODIUM CHLORIDE 0.9% 1000ML 1,000 ML IV SCH ×3 (04:12→20:36)
[2019-07-26] MEDS: MEROPENEM 1GM 100 ML IV SCH ×3 (05:20→21:00)
[2019-07-26] MEDS ORDERED: HYDRALAZINE HCL 20 MG/ML VIAL IV PRN (06:00)
[2019-07-26] MEDS ORDERED: ACETAMINOPHEN 325 MG TAB PO PRN (06:00)
--- NOTE | 2019-07-26 06:45 | Diagnostic Imaging Report ---
EXAMINATION: CHEST SINGLE (PORTABLE) COMPARISON: None INDICATION: Pneumonia ^r/o PNA ^[id number] ^0600 DISCUSSION: Frontal view of the chest obtained at 0622 hours. HEART AND MEDIASTINUM: The cardiomediastinal silhouette is unremarkable. LINES: None. LUNGS: The lungs are well inflated and clear. No pneumonia or pulmonary edema. PLEURA: No pleural effusion or pneumothorax. BONES AND SOFT TISSUES: No focal osseous lesion. The soft tissues are normal. IMPRESSION: No acute cardiopulmonary disease. Signed by: Dr. Greyson Onofre MD on 07/26/2019 6:42 AM
[2019-07-26] MEDS: INSULIN REGULAR, HUMAN 100 UNIT/1 ML 3ML VIAL SQ SCH ×4 (07:30→21:00)
[2019-07-26] MEDS: GABAPENTIN 100 MG CAP PO SCH ×2 (08:40→15:43)
[2019-07-26] MEDS: HYDROCODONE/APAP 5MG-325MG TAB PO PRN ×2 (08:40→15:46)
[2019-07-26] MEDS: BENAZEPRIL HCL 10 MG TAB PO SCH (11:37)
[2019-07-26] MEDS: AMLODIPINE BESYLATE 10 MG TAB PO SCH (11:37)
--- NOTE | 2019-07-26 19:42 | NUR ---
Report given to oncoming nurse of patient's status. Resting in bed. AAOX3 to time, person, place. Respirations even and unlabored. Side rails upx2, call light within reach.
--- NOTE | 2019-07-26 19:45 | NUR ---
Patient received lying in bed. AAO x 4. Patient had no complaints of pain. No signs of respiratory distress. IVF infusing at 125 cc. Fall precautions implemented. Patient instructed to call for assistance when needed. Call light within reach.
[2019-07-26] MEDS ORDERED: MORPHINE SULFATE 2 MG/ML SYR 1ML IV PRN (21:45)
--- NOTE | 2019-07-26 23:01 | Consultation ---
DATE OF CONSULTATION: REASON FOR CONSULTATION: UTI. HISTORY OF PRESENT ILLNESS: This patient who is known to me from before. He is a very pleasant 54-year-old white male, who has history of suprapubic catheter for a bladder neuropathy. The patient who is well known to Dr. Bell. He is coming saying that there is blood coming from the urine as well as streak of white stuff, felt some fevers, felt really bad, what really bother him, however, is the pain. PAST MEDICAL HISTORY: The patient will have suprapubic catheter for a year and half for neurogenic bladder. Obesity, diabetes mellitus. PAST SURGICAL HISTORY: Suprapubic catheter. ALLERGIES: NKA. SOCIAL HISTORY: There is no smoking, drug abuse, or alcohol abuse.. FAMILY HISTORY: Otherwise noncontributory. LABORATORY DATA: The patient was admitted. Blood cultures and urine cultures were obtained. His white count is 8.1. His sodium 136, potassium 3.4, creatinine 1.13. MEDICATIONS: The patient is currently on acetaminophen, Neurontin. He was started on meropenem. PHYSICAL EXAMINATION: GENERAL: He is currently alert, oriented, does not seem to be in acute distress. VITAL SIGNS: Stable, currently afebrile. HEENT: He is not icteric. NECK: Supple. CHEST: Clear. ABDOMEN: Soft. Bowel sounds present. No tenderness. EXTREMITIES: No edema. SKIN: There is no rash. : The urine looked bloody now. IMPRESSION: Hematuria, pain, probably mechanical obstruction. I am concerned that the patient may have bladder irritation, definitely he is colonized with multidrug-resistant pathogen, but I am not so sure it is causing infection at the present time. We just treated him recently with IV antibiotic. I would recommend to continue the same. Await cultures. We will discuss with Urology about possibility of cystoscopy. We will follow with you. Discussed with the patient. MD COOKIE James/JERRY /[id number]
[2019-07-27] VITALS (7 sets, daily range): BP systolic 122–148; BP diastolic 75–97
--- NOTE | 2019-07-27 03:00 | NUR ---
Blood specimen sent to lab for analysis.
[2019-07-27 03:49] LABS: BASOPHILS % 0.5 % (0.0-1.0); EOSINOPHILS # (AUTO) 0.2 (0.0-0.4); EOSINOPHILS % 2.6 % (0.0-6.0); HEMATOCRIT 36.5 % (38.2-49.6); HEMOGLOBIN 12.9 g/dL (14.0-18.0); LYMPHOCYTES # (AUTO) 1.2 (1.0-3.2); LYMPHOCYTES % 19.8 % (18.0-39.1); MEAN CORPUSCULAR HEMOGLOBIN 30.9 pg (28-32); MEAN CORPUSCULAR HGB CONC 35.3 g/dL (31-35); MEAN CORPUSCULAR VOLUME 87.3 fL (81-99); MONOCYTES # (AUTO) 0.5 (0.2-0.8); MONOCYTES % 7.9 % (4.4-11.3); NEUTROPHILS # (AUTO) 4.2 (2.1-6.9); PLATELET COUNT 167 x10e3/uL (140-360); RED BLOOD COUNT 4.18 x10e6/uL (4.3-5.7); RED CELL DISTRIBUTION WIDTH 12.3 % (11.7-14.4)
[2019-07-27 04:06] LABS: ANION GAP 13.4 mmol/L (8-16); BLOOD UREA NITROGEN 9 mg/dL (7-26); BUN/CREATININE RATIO 11 (6-25); CALCIUM 9.2 mg/dL (8.4-10.2); CARBON DIOXIDE 22 mmol/L (22-29); CHLORIDE 107 mmol/L (98-107); CREATININE, SERUM 0.85 mg/dL (0.72-1.25); EST GLOMERULAR FILTRATION RATE > 60 ML/MIN (60-); GLUCOSE 111 mg/dL (74-118); SODIUM 138 mmol/L (136-145)
[2019-07-27 04:11] LABS: POTASSIUM 4.4 mmol/L (3.5-5.1)
[2019-07-27 04:57] LABS: B-TYPE NATRIURETIC PEPTIDE2 36.9 pg/mL (0-100)
[2019-07-27 05:45] LABS: BASOPHILS % 0.5 % (0.0-1.0); EOSINOPHILS # (AUTO) 0.2 (0.0-0.4); EOSINOPHILS % 2.9 % (0.0-6.0); HEMATOCRIT 37.9 % (38.2-49.6); HEMOGLOBIN 13.3 g/dL (14.0-18.0); LYMPHOCYTES # (AUTO) 1.1 (1.0-3.2); LYMPHOCYTES % 17.1 % (18.0-39.1); MEAN CORPUSCULAR HEMOGLOBIN 30.6 pg (28-32); MEAN CORPUSCULAR HGB CONC 35.1 g/dL (31-35); MEAN CORPUSCULAR VOLUME 87.3 fL (81-99); MONOCYTES # (AUTO) 0.5 (0.2-0.8); NEUTROPHILS # (AUTO) 4.7 (2.1-6.9); NEUTROPHILS % 71.2 % (38.7-80.0); PLATELET COUNT 167 x10e3/uL (140-360); RED BLOOD COUNT 4.34 x10e6/uL (4.3-5.7); RED CELL DISTRIBUTION WIDTH 12.2 % (11.7-14.4)
[2019-07-27] MEDS: MEROPENEM 1GM 100 ML IV SCH ×3 (06:00→21:13)
[2019-07-27] MEDS: SODIUM CHLORIDE 0.9% 1000ML 1,000 ML IV SCH ×3 (06:02→21:13)
[2019-07-27 06:10] LABS: ALANINE AMINOTRANSFERASE 31 IU/L (0-55); ALBUMIN 3.2 g/dL (3.5-5.0); ALBUMIN/GLOBULIN RATIO 1.1 (0.8-2.0); ALKALINE PHOSPHATASE 53 IU/L (40-150); ANION GAP 12.1 mmol/L (8-16); BLOOD UREA NITROGEN 8 mg/dL (7-26); BUN/CREATININE RATIO 9 (6-25); CALCIUM 8.9 mg/dL (8.4-10.2); CARBON DIOXIDE 23 mmol/L (22-29); CHLORIDE 109 mmol/L (98-107); CREATININE, SERUM 0.89 mg/dL (0.72-1.25); EST GLOMERULAR FILTRATION RATE > 60 ML/MIN (60-); GLUCOSE 125 mg/dL (74-118); POTASSIUM 4.1 mmol/L (3.5-5.1); SODIUM 140 mmol/L (136-145)
--- NOTE | 2019-07-27 07:15 | NUR ---
Walking rounds done. Shift report given to oncoming nurse.
[2019-07-27] MEDS: INSULIN REGULAR, HUMAN 100 UNIT/1 ML 3ML VIAL SQ SCH ×4 (07:30→21:00)
[2019-07-27] MEDS: AMLODIPINE BESYLATE 10 MG TAB PO SCH (07:58)
[2019-07-27] MEDS: BENAZEPRIL HCL 10 MG TAB PO SCH (07:58)
[2019-07-27] MEDS: HYDROCODONE/APAP 5MG-325MG TAB PO PRN ×3 (07:58→21:32)
[2019-07-27] MEDS: GABAPENTIN 100 MG CAP PO SCH ×2 (07:59→15:47)
--- NOTE | 2019-07-27 09:00 | NUR ---
Simple irrigation done as ordered. Provided leg bag as requested
--- NOTE | 2019-07-27 19:05 | NUR ---
Report given to oncoming nurse of patient's status. Sitting on sofa. No s/s of acute distress noted. Call light within reach.
--- NOTE | 2019-07-27 19:35 | NUR ---
PATIENT RECEIVED. PATIENT IS AAOX3, RESP EVEN AND UNLABORED. NO ACUTE DISTRESS NOTED AT THIS TIME. IV FLUID INFUSING. FAMILY AT BED SIDE. CALL LIGHT WITH REACH. INSTRUCT TO CALL FOR ASSISTANCE. BED LOW/LOCKED. CONTINUE TO MONITOR CLOSELY
--- NOTE | 2019-07-27 22:30 | NUR ---
IRRIGATED WISE PER ORDER. PATIENT TOLERATED WELL
[2019-07-28] VITALS: BP 133/85
[2019-07-28 03:42] LABS: BASOPHILS % 0.4 % (0.0-1.0); EOSINOPHILS # (AUTO) 0.2 (0.0-0.4); EOSINOPHILS % 3.4 % (0.0-6.0); HEMATOCRIT 37.4 % (38.2-49.6); HEMOGLOBIN 13.3 g/dL (14.0-18.0); LYMPHOCYTES % 28.8 % (18.0-39.1); MEAN CORPUSCULAR HEMOGLOBIN 30.6 pg (28-32); MEAN CORPUSCULAR HGB CONC 35.6 g/dL (31-35); MONOCYTES # (AUTO) 0.7 (0.2-0.8); MONOCYTES % 9.9 % (4.4-11.3); NEUTROPHILS # (AUTO) 3.9 (2.1-6.9); NEUTROPHILS % 57.2 % (38.7-80.0); PLATELET COUNT 178 x10e3/uL (140-360); RED BLOOD COUNT 4.35 x10e6/uL (4.3-5.7); RED CELL DISTRIBUTION WIDTH 11.9 % (11.7-14.4)
[2019-07-28 03:55] LABS: ANION GAP 13.1 mmol/L (8-16); BLOOD UREA NITROGEN 9 mg/dL (7-26); BUN/CREATININE RATIO 11 (6-25); CALCIUM 9.1 mg/dL (8.4-10.2); CARBON DIOXIDE 23 mmol/L (22-29); CHLORIDE 104 mmol/L (98-107); CREATININE, SERUM 0.84 mg/dL (0.72-1.25); EST GLOMERULAR FILTRATION RATE > 60 ML/MIN (60-); GLUCOSE 117 mg/dL (74-118); POTASSIUM 4.1 mmol/L (3.5-5.1); SODIUM 136 mmol/L (136-145)
[2019-07-28 04:00] VITALS: BP 134/66
[2019-07-28] MEDS: MEROPENEM 1GM 100 ML IV SCH (05:00)
[2019-07-28] MEDS: SODIUM CHLORIDE 0.9% 1000ML 1,000 ML IV SCH ×2 (05:00→10:55)
[2019-07-28] MEDS ORDERED: CIPRO500 MG PO (06:15)
[2019-07-28] MEDS: INSULIN REGULAR, HUMAN 100 UNIT/1 ML 3ML VIAL SQ SCH (07:30)
[2019-07-28 07:59] VITALS: BP 145/81
[2019-07-28 08:05] VITALS: BP 145/81
[2019-07-28] MEDS: BENAZEPRIL HCL 10 MG TAB PO SCH (09:03)
[2019-07-28] MEDS: AMLODIPINE BESYLATE 10 MG TAB PO SCH (09:03)
[2019-07-28] MEDS: GABAPENTIN 100 MG CAP PO SCH (09:03)
--- NOTE | 2019-07-28 10:20 | NUR ---
IRRIGATED SUPRAPUBIC WISE PER MD ORDER. PATIENT TOLERATED WELL. SWITCHED WISE BAG TO LEG BAG.
--- NOTE | 2019-07-30 02:55 | Discharge Summary ---
ADMISSION DIAGNOSES: 1. Urinary tract infection with severe sepsis, present on admission. 2. History of neurogenic bladder. 3. Hypertension. 4. Type 2 diabetes. 5. Obesity. DISCHARGE DIAGNOSES: 1. Urinary tract infection with severe sepsis, present on admission. 2. History of neurogenic bladder. 3. Hypertension. 4. Type 2 diabetes. 5. Obesity. 6. Pseudomonas urinary tract infection, present on admission with severe sepsis. MEDICAL HISTORY: Type 2 diabetes, hypertension, neurogenic bladder requiring suprapubic catheter placement, frequent UTIs. SURGICAL HISTORY: Cholecystectomy and suprapubic catheter placement. FAMILY HISTORY: The patient's grandmother and grandpa, aunts, uncles and cousins have diabetes. The patient's mom had cancer. The patient's grandpa x2 had a stroke. SOCIAL HISTORY: Noncontributory. HOSPITAL COURSE: A 54-year-old male with past medical history of neurogenic bladder and chronic Nunes, chronic suprapubic catheter and frequent UTIs, admits with complaints of dysuria, cloudy urine and debris in the catheter for the last 4 days. He was recently treated with Merrem for 2 weeks for Pseudomonas and Enterococcus of the urine. His Nunes was changed 1 week ago. He also finished the IV antibiotics 2 weeks before admission. On admission, the patient was started once again on Merrem. His lactic was 20.2. ID was consulted. Chest x-ray was negative. Blood cultures negative. Urine culture came back positive for Pseudomonas. The patient was started on Cipro p.o. for 2 weeks per Infectious Disease recommendation. Urology was consulted, who ordered to irrigate the Nunes every shift and teach the patient how to do it at home. The patient understands discharge instructions and agrees to plan. He will follow up with primary care in 1 to 2 weeks and Urology in 1 to 2 weeks. Vital signs stable. The patient is afebrile. Dictated by Eun Lisa NP MD VENUS Hinojosa/MODL /[id number]
== END 2019-07-28 11:34 | disposition home or self-care (01) | DRG 872 ==
LOC: ER 22:59 → ERHOLD 07-26 02:58 → MED/SURG2 07-26 03:41
PROVIDERS: ADMIT Internal Medicine; ATTEND Internal Medicine
DX: A41.9 Sepsis, unspecified organism (principal); N39.0 Urinary tract infection, site not specified; E11.9 Type 2 diabetes mellitus without complications; I10 Essential (primary) hypertension; G43.909 Migraine, unspecified, not intractable, without status migrainosus; Z87.440 Personal history of urinary (tract) infections; N31.9 Neuromuscular dysfunction of bladder, unspecified; E66.9 Obesity, unspecified; Z68.35 Body mass index [BMI] 35.0-35.9, adult
CPT/HCPCS: 36415; 71045; 80048; 80053; 81001; 82948; 83036; 83605; 83880; 85025; 87040; 87086; 87186; 99284; J1817; J2270; J2405; J7030

== ENCOUNTER 2019-08-02 03:54 | Emergency (ER) | payer OTHER ==
[~2019-08-02] VITALS: Ht 175.3 cm; Wt 108.9 kg
[~2019-08-02 03:54] MED LIST changes: +CIPRO500 MG PO; +METHENAMINE HIPP1 GM PO
--- NOTE | 2019-08-02 04:08 | NUR ---
PLACED 24FR CATH TO SUPRAPUBIC WITH 5CC IN BALLOON USING STERILE TECHNIQUE. TOLERATED WELL.
[2019-08-02] MEDS ORDERED: ACETAMINOPHEN/CODEINE 300MG - 30MG TAB PO ONE (04:15)
[2019-08-02 04:38] VITALS: BP 127/78
== END 2019-08-02 04:45 | disposition home or self-care (01) ==
LOC: ER 03:54
DX: T83.028A Displacement of other urinary catheter, initial encounter (principal); N31.9 Neuromuscular dysfunction of bladder, unspecified; E11.9 Type 2 diabetes mellitus without complications; I10 Essential (primary) hypertension; Z87.440 Personal history of urinary (tract) infections
CPT/HCPCS: 99283

== ENCOUNTER 2019-09-16 20:41 | Emergency (ER) | payer BC, OTHER ==
[~2019-09-16] VITALS: Ht 175.3 cm; Wt 108.9 kg
[2019-09-16 21:11] LABS: BASOPHILS % 0.2 % (0.0-1.0); EOSINOPHILS # (AUTO) 0.1 (0.0-0.4); EOSINOPHILS % 0.4 % (0.0-6.0); HEMATOCRIT 44.8 % (38.2-49.6); HEMOGLOBIN 15.9 g/dL (14.0-18.0); LYMPHOCYTES # (AUTO) 1.5 (1.0-3.2); LYMPHOCYTES % 10.6 % (18.0-39.1); MEAN CORPUSCULAR HEMOGLOBIN 30.5 pg (28-32); MEAN CORPUSCULAR HGB CONC 35.5 g/dL (31-35); MONOCYTES # (AUTO) 0.7 (0.2-0.8); MONOCYTES % 4.8 % (4.4-11.3); NEUTROPHILS # (AUTO) 11.9 (2.1-6.9); NEUTROPHILS % 83.6 % (38.7-80.0); PLATELET COUNT 247 x10e3/uL (140-360); RED BLOOD COUNT 5.21 x10e6/uL (4.3-5.7); RED CELL DISTRIBUTION WIDTH 11.8 % (11.7-14.4)
[2019-09-16 21:29] LABS: AMYLASE 46 U/L (25-125); LIPASE 31 U/L (8-78)
[2019-09-16 21:31] LABS: ALANINE AMINOTRANSFERASE 24 IU/L (0-55); ALBUMIN 3.1 g/dL (3.5-5.0); ALBUMIN/GLOBULIN RATIO 1.1 (0.8-2.0); ALKALINE PHOSPHATASE 49 IU/L (40-150); ANION GAP 15.6 mmol/L (8-16); BLOOD UREA NITROGEN 14 mg/dL (7-26); BUN/CREATININE RATIO 13 (6-25); CALCIUM 8.8 mg/dL (8.4-10.2); CARBON DIOXIDE 21 mmol/L (22-29); CHLORIDE 102 mmol/L (98-107); CREATININE, SERUM 1.05 mg/dL (0.72-1.25); EST GLOMERULAR FILTRATION RATE > 60 ML/MIN (60-); GLUCOSE 203 mg/dL (74-118); POTASSIUM 3.6 mmol/L (3.5-5.1); SODIUM 135 mmol/L (136-145)
[2019-09-16] MEDS ORDERED: SODIUM CHLORIDE 0.9% 1000ML 1,000 ML IV SCH (21:45)
[2019-09-16 22:30] LABS: BILIRUBIN,URINE NEGATIVE (NEGATIVE); CLARITY,URINE CLEAR (CLEAR); COLOR,URINE YELLOW (YELLOW); KETONES,URINE NEGATIVE (NEGATIVE); LEUKOCYTE ESTERASE ,URINE MODERATE (NEGATIVE); NITRITE,URINE NEGATIVE (NEGATIVE); PROTEIN,URINE DIPSTICK 2+ (NEGATIVE); URINE UROBILINOGEN 0.2 mg/dL (0.2 - 1)
[2019-09-16 22:46] LABS: BACTERIA,URINE MANY /HPF; EPITHELIAL CELLS,URINE MODERATE /LPF
--- NOTE | 2019-09-17 00:15 | Diagnostic Imaging Report ---
EXAM: CT Abdomen and Pelvis WITH contrast INDICATION: Abdominal pain, nausea, vomiting, diarrhea COMPARISON: None. TECHNIQUE: Abdomen and pelvis were scanned utilizing a multidetector helical scanner from the lung base to the pubic symphysis after administration of IV contrast. Coronal and sagittal reformations were obtained. Routine protocol was performed. Scan was performed when during portal venous phase. IV CONTRAST: 100 mL of Isovue 370 ORAL CONTRAST: None COMPLICATIONS: None RADIATION DOSE: Total DLP: 881 mGy*cm Estimated effective dose: (DLP x 0.015 x size factor) mSv CTDIvol has been reviewed. It is below the limits set by the Radiation Protocol Committee (RPC). Dose modulation, iterative reconstruction, and/or weight based adjustment of the mA/kV was utilized to reduce the radiation dose to as low as reasonably achievable. FINDINGS: LINES and TUBES: None. LOWER THORAX: Suprapubic percutaneous urinary bladder catheter. HEPATOBILIARY: No focal hepatic lesions. No biliary ductal dilation. GALLBLADDER: There are cholecystectomy clips. SPLEEN: No splenomegaly. PANCREAS: No focal masses or ductal dilatation. ADRENALS: A 2.5 cm right adrenal nodule measures greater than 10 Hounsfield units. KIDNEYS/URETERS: Kidneys enhance symmetrically. No hydronephrosis. No cystic or solid mass lesions. No stones. GI TRACT: Mild wall thickening of the descending and colon with mild pericolonic fat stranding and hyperemia of the colonic resurrected. Liquid stool throughout the cecum, transverse colon and descending colon and rectum. Mild mural hyperenhancement of the rectum and descending colon. Numerous diverticuli scattered throughout the colon, worst in the descending and sigmoid colon. Appendix is normal. PELVIC ORGANS/BLADDER: Bladder wall thickening and perivesicular fat stranding. A 1.2 cm depending calcification in the bladder lumen. LYMPH NODES: Slight prominence of hepatoportal and mesenteric lymph nodes. No lymphadenopathy by size criteria. VESSELS: Unremarkable. PERITONEUM / RETROPERITONEUM: Trace perisplenic fluid and trace fluid along the left paracolic gutter. Mild mistiness of the mesenteric root. BONES: Unremarkable. SOFT TISSUES: Unremarkable. IMPRESSION: 1. Colonic wall thickening and pericolonic fat stranding of the descending and sigmoid colon could be due to colitis and/or uncomplicated diverticulitis in the setting of diverticulosis. Additional above findings favor nonspecific colitis. 2. Bladder findings raise suspicion for cystitis. 3. An indeterminate 2.5 cm right adrenal nodule. Recommend nonemergent abdominal CT adrenal mass protocol for further evaluation. 4. A 1.2 cm depending calcification in the bladder lumen may represent mural calcification or bladder urolithiasis. Signed by: Josue Phelps DO on 09/17/2019 12:12 AM
[2019-09-17] MEDS ORDERED: METRONIDAZOLE 500MG/NS 100ML 100 ML IV STA (00:20)
[2019-09-17] MEDS ORDERED: CIPROFLOXACIN 400 MG/D5W 200ML 200 ML IV STA (00:20)
[2019-09-17] MEDS ORDERED: FLAGYL500 MG PO (00:39)
[2019-09-17] MEDS ORDERED: ZOFRAN4 MG SL (00:39)
[2019-09-17] MEDS ORDERED: CIPRO500 MG PO (00:39)
--- NOTE | 2019-09-17 02:35 | NUR ---
REPORT GIVEN TO YOAN FORD
== END 2019-09-17 02:58 | disposition home or self-care (01) ==
LOC: ER 20:41
DX: R19.7 Diarrhea, unspecified (principal); R11.0 Nausea; E11.65 Type 2 diabetes mellitus with hyperglycemia; I11.0 Hypertensive heart disease with heart failure
CPT/HCPCS: 99284; J0744

== ENCOUNTER → 2020-09-05 | Outpatient (CLI) | payer BC ==
[~2020-09-05] MED LIST changes: +FLAGYL500 MG PO; +IOPAMIDOL 370 MG/ML 200 ML INFUS..BTL INJ ONE; +SODIUM CHLORIDE 0.9% 50ML 50 ML ONE; +ZOFRAN4 MG SL
[2020-09-05 14:53] LABS: BLOOD UREA NITROGEN 11 mg/dL (7-26); BUN/CREATININE RATIO 11 (6-25); CREATININE, SERUM 0.98 mg/dL (0.72-1.25); EST GLOMERULAR FILTRATION RATE > 60 ML/MIN (60-)
--- NOTE | 2020-09-05 16:46 | Diagnostic Imaging Report ---
CT of the abdomen and pelvis with and without contrast TECHNIQUE: CT of the abdomen and pelvis WITHOUT and WITH intravenous contrast and WITHOUT oral contrast. Dose modulation, iterative reconstruction, and/or weight-based adjustment of the mA/kV was utilized to reduce the radiation dose to as low as reasonably achievable. Adrenal protocol was utilized including noncontrast, venous phase and 15 minute delayed IV CONTRAST: 100 mL of Isovue-370 ORAL CONTRAST: Water RADIATION DOSE: Total DLP: ... mGy*cm COMPLICATIONS: None INDICATION: ^[id number] ^1550 ^BENIGN NEOPLASM OF ADRENAL GLAND. COMPARISON: None. FINDINGS: LOWER THORAX: Unremarkable. HEPATOBILIARY: No focal hepatic lesions. Gallbladder is surgically absent.. No biliary ductal dilatation. SPLEEN: No splenomegaly. PANCREAS: No focal masses or ductal dilatation. ADRENALS: Within the mid aspect of the right adrenal gland there is a 2.1 x 2.1 cm heterogeneous nodule. Precontrast Hounsfield units: 28.36 Postcontrast venous Hounsfield units: 73.94 50 minute delayed concerning his: 42.74 Absolute washout: 68.5%. Relative washout: 42.2% Left adrenal gland is unremarkable. KIDNEYS/URETERS: Symmetric cortical enhancement without hydronephrosis, perinephric fluid collection or suspicious mass. Ureters are not dilated. Noncontrast images are negative for renal calculus. Delayed images demonstrate symmetric excretion of contrast without upper urinary tract intraluminal filling defect. Ureters are not dilated were visualized. PERITONEUM/RETROPERITONEUM: No free air or fluid. LYMPH NODES: No lymphadenopathy. VESSELS: Unremarkable. GI TRACT: Bowel loops are not dilated. Multiple diverticuli identified of the sigmoid colon without surrounding inflammatory changes. Stomach is decompressed limiting evaluation. Normal appendix is visualized. BONES AND SOFT TISSUES: No acute osseous abnormality. Mild to moderate multilevel degenerative changes of the thoracolumbar spine are noted. No suspicious destructive lesion. Soft tissues are unremarkable. IMPRESSION: 1. 2.1 cm right adrenal nodule is consistent with adenoma by both absolute and relative washout calculations. 2. Uncomplicated colonic diverticulosis. Signed by: Kai Post MD on 09/05/2020 4:43 PM
== END ==
LOC: CT 14:04
PROVIDERS: ATTEND Urology
DX: D35.01 Benign neoplasm of right adrenal gland (principal)
CPT/HCPCS: 36415; 74170; 82565; 84520; Q9967

== ENCOUNTER 2021-04-23 02:05 | Emergency (ER) | payer OTHER, BC ==
[~2021-04-23] VITALS: Ht 175.3 cm; Wt 115.7 kg
[~2021-04-23 02:05] MED LIST changes: -IOPAMIDOL 370 MG/ML 200 ML INFUS..BTL INJ ONE; -SODIUM CHLORIDE 0.9% 50ML 50 ML ONE
[2021-04-23] MEDS ORDERED: TYLENOL # 31 EA PO (02:40)
[2021-04-23] MEDS ORDERED: IBUPROFEN IB200 MG PO (02:40)
[2021-04-23] MEDS ORDERED: ACETAMINOPHEN 325 MG TAB ONE (02:45)
[2021-04-23] MEDS ORDERED: ACETAMINOPHEN 325 MG TAB PO ONE (02:45)
[2021-04-23] MEDS ORDERED: IBUPROFEN 200 MG TAB PO ONE (02:45)
[2021-04-23] MEDS ORDERED: IBUPROFEN 600 MG TAB ONE (02:45)
== END 2021-04-23 03:35 | disposition home or self-care (01) ==
LOC: FSED 02:35
DX: S43.401A Unspecified sprain of right shoulder joint, initial encounter (principal); W01.0XXA Fall on same level from slipping, tripping and stumbling without subsequent striking against object, initial encounter; Y92.003 Bedroom of unspecified non-institutional (private) residence as the place of occurrence of the external cause; I10 Essential (primary) hypertension; E11.40 Type 2 diabetes mellitus with diabetic neuropathy, unspecified
CPT/HCPCS: 99283

== ENCOUNTER 2021-10-15 22:31 | Inpatient (IN) | payer BC ==
[~2021-10-15] VITALS: Ht 175.3 cm; Wt 116.1 kg
[~2021-10-15 22:31] MED LIST changes: +IBUPROFEN IB200 MG PO; +TYLENOL # 31 EA PO
[2021-10-15] MEDS ORDERED: SODIUM CHLORIDE 0.9% 1000ML 1,000 ML IV ONE (22:45)
[2021-10-15 22:55] LABS: BASOPHILS % 0.2 % (0.0-1.0); EOSINOPHILS # (AUTO) 0.1 (0.0-0.4); EOSINOPHILS % 0.6 % (0.0-6.0); HEMOGLOBIN 13.6 g/dL (14.0-18.0); LYMPHOCYTES # (AUTO) 3.7 (1.0-3.2); LYMPHOCYTES % 21.4 % (18.0-39.1); MEAN CORPUSCULAR HEMOGLOBIN 30.8 pg (28-32); MEAN CORPUSCULAR HGB CONC 35.8 g/dL (31-35); MONOCYTES # (AUTO) 1.1 (0.2-0.8); MONOCYTES % 6.4 % (4.4-11.3); NEUTROPHILS # (AUTO) 12.4 (2.1-6.9); NEUTROPHILS % 71.1 % (38.7-80.0); PLATELET COUNT 208 x10e3/uL (140-360); RED BLOOD COUNT 4.42 x10e6/uL (4.3-5.7); RED CELL DISTRIBUTION WIDTH 11.7 % (11.7-14.4)
[2021-10-15] MEDS ORDERED: IBUPROFEN 600 MG TAB PO STA (22:55)
[2021-10-15 23:13] LABS: ALBUMIN 3.5 g/dL (3.5-5.0); ANION GAP 15.3 mmol/L (8-16); CREATININE, SERUM 0.94 mg/dL (0.72-1.25); POTASSIUM 4.3 mmol/L (3.5-5.1)
[2021-10-15 23:20] LABS: CREATINE KINASE MB 0.2 ng/mL (0-5.0)
[2021-10-15 23:21] LABS: CLARITY,URINE CLOUDY (CLEAR); COLOR,URINE ORANGE (YELLOW); LEUKOCYTE ESTERASE ,URINE LARGE (NEGATIVE); NITRITE,URINE POSITIVE (NEGATIVE); PROTEIN,URINE DIPSTICK 1+ (NEGATIVE)
[2021-10-15 23:22] LABS: KETONES,URINE TRACE (NEGATIVE); URINE UROBILINOGEN 1 mg/dL (0.2 - 1)
[2021-10-15 23:25] LABS: BACTERIA,URINE MODERATE /HPF; EPITHELIAL CELLS,URINE FEW /LPF; WBC,URINE (MAN) >50 /HPF (0-5)
[2021-10-15] MEDS ORDERED: MEROPENEM 1 GM VIAL ONE (23:29)
[2021-10-15] MEDS ORDERED: SODIUM CHLORIDE 0.9% 100 ML ONE (23:30)
[2021-10-15] MEDS: MEROPENEM 1 GM in SODIUM CHLORIDE 0.9% 100 ML 100 ML IV SCH (23:30)
[2021-10-15] MEDS ORDERED: Morphine 4mg Syringe 4 MG/ML INJ IV PRN (23:45)
[2021-10-15] MEDS ORDERED: DEXTROSE 50% SYRINGE 50 ML IV PRN (23:45)
[2021-10-15] MEDS ORDERED: ACETAMINOPHEN 325 MG TAB PO PRN (23:45)
[2021-10-15] MEDS ORDERED: ONDANSETRON HCL INJ 2MG/ML 2ML 2 MG/ML VIAL IV PRN (23:45)
[2021-10-16] VITALS (10 sets, daily range): BP systolic 109–138; BP diastolic 70–81
[2021-10-16] MEDS: SODIUM CHLORIDE 0.9% 1000ML 1,000 ML IV SCH ×4 (01:10→23:45)
[2021-10-16] MEDS: MEROPENEM 1 GM in SODIUM CHLORIDE 0.9% 100 ML 100 ML IV SCH ×3 (05:22→22:00)
[2021-10-16 07:21] LABS: BASOPHILS % 0.3 % (0.0-1.0); EOSINOPHILS # (AUTO) 0.2 (0.0-0.4); EOSINOPHILS % 2.3 % (0.0-6.0); HEMATOCRIT 36.4 % (38.2-49.6); HEMOGLOBIN 12.5 g/dL (14.0-18.0); LYMPHOCYTES # (AUTO) 2.3 (1.0-3.2); LYMPHOCYTES % 23.1 % (18.0-39.1); MEAN CORPUSCULAR HEMOGLOBIN 30.4 pg (28-32); MEAN CORPUSCULAR HGB CONC 34.3 g/dL (31-35); MEAN CORPUSCULAR VOLUME 88.6 fL (81-99); MONOCYTES # (AUTO) 0.8 (0.2-0.8); NEUTROPHILS # (AUTO) 6.6 (2.1-6.9); PLATELET COUNT 171 x10e3/uL (140-360); RED BLOOD COUNT 4.11 x10e6/uL (4.3-5.7); RED CELL DISTRIBUTION WIDTH 11.9 % (11.7-14.4)
[2021-10-16] MEDS: INSULIN REGULAR, HUMAN 100 UNIT/1 ML SQ SCH ×3 (07:30→16:25)
[2021-10-16 07:39] LABS: ANION GAP 11.1 mmol/L (8-16); CALCIUM 8.2 mg/dL (8.4-10.2); CREATININE, SERUM 0.79 mg/dL (0.72-1.25); POTASSIUM 4.1 mmol/L (3.5-5.1)
[2021-10-17] VITALS (7 sets, daily range): BP systolic 129–142; BP diastolic 78–91
[2021-10-17] MEDS: INSULIN REGULAR, HUMAN 100 UNIT/1 ML SQ SCH ×5 (00:23→21:00)
[2021-10-17 04:57] LABS: BASOPHILS % 0.3 % (0.0-1.0); EOSINOPHILS # (AUTO) 0.3 (0.0-0.4); EOSINOPHILS % 3.5 % (0.0-6.0); HEMATOCRIT 39.6 % (38.2-49.6); HEMOGLOBIN 13.6 g/dL (14.0-18.0); LYMPHOCYTES # (AUTO) 1.7 (1.0-3.2); LYMPHOCYTES % 23.4 % (18.0-39.1); MEAN CORPUSCULAR HEMOGLOBIN 30.4 pg (28-32); MEAN CORPUSCULAR HGB CONC 34.3 g/dL (31-35); MEAN CORPUSCULAR VOLUME 88.6 fL (81-99); MONOCYTES # (AUTO) 0.6 (0.2-0.8); NEUTROPHILS # (AUTO) 4.7 (2.1-6.9); NEUTROPHILS % 64.4 % (38.7-80.0); PLATELET COUNT 189 x10e3/uL (140-360); RED BLOOD COUNT 4.47 x10e6/uL (4.3-5.7); RED CELL DISTRIBUTION WIDTH 11.7 % (11.7-14.4)
[2021-10-17 05:24] LABS: ANION GAP 14.1 mmol/L (8-16); CALCIUM 8.5 mg/dL (8.4-10.2); CREATININE, SERUM 0.81 mg/dL (0.72-1.25); POTASSIUM 4.1 mmol/L (3.5-5.1)
[2021-10-17] MEDS: MEROPENEM 1 GM in SODIUM CHLORIDE 0.9% 100 ML 100 ML IV SCH ×3 (07:54→22:00)
[2021-10-17] MEDS: SODIUM CHLORIDE 0.9% 1000ML 1,000 ML IV SCH ×3 (09:20→23:45)
[2021-10-17] MEDS ORDERED: ONDANSETRON HCL 4 MG ORAL DISINTEGRATING TAB PO PRN (14:15)
[2021-10-18] VITALS: BP 126/80
[2021-10-18 04:00] VITALS: BP 144/99
[2021-10-18] MEDS: MEROPENEM 1 GM in SODIUM CHLORIDE 0.9% 100 ML 100 ML IV SCH (05:41)
[2021-10-18 06:28] LABS: BASOPHILS % 0.4 % (0.0-1.0); EOSINOPHILS # (AUTO) 0.2 (0.0-0.4); EOSINOPHILS % 3.4 % (0.0-6.0); HEMATOCRIT 38.4 % (38.2-49.6); HEMOGLOBIN 13.6 g/dL (14.0-18.0); LYMPHOCYTES # (AUTO) 1.9 (1.0-3.2); LYMPHOCYTES % 28.3 % (18.0-39.1); MEAN CORPUSCULAR HEMOGLOBIN 30.8 pg (28-32); MEAN CORPUSCULAR HGB CONC 35.4 g/dL (31-35); MEAN CORPUSCULAR VOLUME 86.9 fL (81-99); MONOCYTES # (AUTO) 0.5 (0.2-0.8); MONOCYTES % 7.8 % (4.4-11.3); NEUTROPHILS # (AUTO) 4.1 (2.1-6.9); NEUTROPHILS % 59.5 % (38.7-80.0); PLATELET COUNT 229 x10e3/uL (140-360); RED BLOOD COUNT 4.42 x10e6/uL (4.3-5.7); RED CELL DISTRIBUTION WIDTH 11.4 % (11.7-14.4)
[2021-10-18 06:53] LABS: ANION GAP 12.9 mmol/L (8-16); CALCIUM 9.1 mg/dL (8.4-10.2); CREATININE, SERUM 0.83 mg/dL (0.72-1.25); POTASSIUM 3.9 mmol/L (3.5-5.1)
[2021-10-18] MEDS: INSULIN REGULAR, HUMAN 100 UNIT/1 ML SQ SCH ×3 (07:30→17:19)
[2021-10-18 08:00] VITALS: BP 144/99
[2021-10-18 08:37] VITALS: BP 143/95
[2021-10-18] MEDS: SODIUM CHLORIDE 0.9% 1000ML 1,000 ML IV SCH ×2 (11:57→15:53)
[2021-10-18 12:10] VITALS: BP 132/84
[2021-10-18] MEDS ORDERED: MEROPENEM 1 GM in SODIUM CHLORIDE 0.9% 100 ML IV SCH (14:00)
[2021-10-18 16:27] VITALS: BP 134/83
[2021-10-18] MEDS ORDERED: METFORMIN HCL500 MG PO (16:28)
[2021-10-18] MEDS ORDERED: LEVOFLOXACIN250 MG PO (16:28)
== END 2021-10-18 19:00 | disposition home or self-care (01) | DRG 698 ==
LOC: ER 22:33 → ERHOLD 23:49 → MED/SURG2 10-16 00:49
PROVIDERS: ADMIT Internal Medicine; ATTEND Internal Medicine
DX: T83.510A Infection and inflammatory reaction due to cystostomy catheter, initial encounter (principal); G93.41 Metabolic encephalopathy; N39.0 Urinary tract infection, site not specified; T82.41XA Breakdown (mechanical) of vascular dialysis catheter, initial encounter; E66.9 Obesity, unspecified; N31.9 Neuromuscular dysfunction of bladder, unspecified; E11.42 Type 2 diabetes mellitus with diabetic polyneuropathy; E11.43 Type 2 diabetes mellitus with diabetic autonomic (poly)neuropathy; I10 Essential (primary) hypertension; B95.61 Methicillin susceptible Staphylococcus aureus infection as the cause of diseases classified elsewhere; B96.89 Other specified bacterial agents as the cause of diseases classified elsewhere; E86.0 Dehydration; Z68.37 Body mass index [BMI] 37.0-37.9, adult; Z20.822 Contact with and (suspected) exposure to COVID-19
CPT/HCPCS: 36415; 71045; 80048; 80053; 81001; 82550; 82553; 82948; 83605; 84484; 85025; 87040; 87086; 87186; 93005; 94799; 99284; J1817; J2185; J2270; J7030; J7050; Q0162; U0002

== ENCOUNTER 2021-12-30 14:39 | Emergency (ER) | payer BC ==
[~2021-12-30] VITALS: Ht 327.7 cm; Wt 116.1 kg
[~2021-12-30 14:39] MED LIST changes: +LEVOFLOXACIN250 MG PO; +METFORMIN HCL500 MG PO
[2021-12-30 15:16] LABS: BASOPHILS # (AUTO) 0.1 (0.0-0.1); BASOPHILS % 0.3 % (0.0-1.0); EOSINOPHILS # (AUTO) 0.1 (0.0-0.4); EOSINOPHILS % 0.9 % (0.0-6.0); HEMATOCRIT 47.6 % (38.2-49.6); HEMOGLOBIN 16.8 g/dL (14.0-18.0); LYMPHOCYTES # (AUTO) 4.2 (1.0-3.2); LYMPHOCYTES % 29.5 % (18.0-39.1); MEAN CORPUSCULAR HEMOGLOBIN 30.4 pg (28-32); MEAN CORPUSCULAR HGB CONC 35.3 g/dL (31-35); MEAN CORPUSCULAR VOLUME 86.2 fL (81-99); MONOCYTES # (AUTO) 0.7 (0.2-0.8); MONOCYTES % 4.8 % (4.4-11.3); NEUTROPHILS # (AUTO) 9.1 (2.1-6.9); NEUTROPHILS % 63.9 % (38.7-80.0); PLATELET COUNT 315 x10e3/uL (140-360); RED BLOOD COUNT 5.52 x10e6/uL (4.3-5.7); RED CELL DISTRIBUTION WIDTH 11.9 % (11.7-14.4)
[2021-12-30 15:18] LABS: CLARITY,URINE SL CLOUDY (CLEAR); COLOR,URINE STRAW (YELLOW); KETONES,URINE NEGATIVE (NEGATIVE); LEUKOCYTE ESTERASE ,URINE SMALL (NEGATIVE); NITRITE,URINE NEGATIVE (NEGATIVE); PROTEIN,URINE DIPSTICK >=300 (NEGATIVE); URINE UROBILINOGEN 0.2 mg/dL (0.2 - 1)
[2021-12-30 15:29] LABS: BACTERIA,URINE MODERATE /HPF; RBC,URINE 0-5 /HPF (0-5)
[2021-12-30 15:41] LABS: ALBUMIN 3.7 g/dL (3.5-5.0); CALCIUM 9.5 mg/dL (8.4-10.2); CREATININE, SERUM 1.22 mg/dL (0.72-1.25)
[2021-12-30 15:43] LABS: CREATINE KINASE MB 1.1 ng/mL (0-5.0)
[2021-12-30] MEDS ORDERED: ONDANSETRON HCL INJ 2MG/ML 2ML 2 MG/ML VIAL IV PRN (15:45)
[2021-12-30] MEDS ORDERED: Morphine 4mg Syringe 4 MG/ML INJ IV PRN (15:45)
[2021-12-30] MEDS ORDERED: METHYLPREDNISOLONE SOD SUCC 125 MG/2ML VIAL IV ONE (16:00)
[2021-12-30] MEDS ORDERED: LEVALBUTEROL HCL SOLN NEBU 1.25 MG/3 ML NEB INH PRN (16:00)
[2021-12-30] MEDS ORDERED: ONDANSETRON ODT4 MG PO (18:24)
[2021-12-30] MEDS ORDERED: METRONIDAZOLE500 MG PO (18:24)
[2021-12-30] MEDS ORDERED: CIPRO500 MG PO (18:24)
== END 2021-12-30 18:42 | disposition home or self-care (01) ==
LOC: ER 15:15
DX: R10.32 Left lower quadrant pain (principal); N30.90 Cystitis, unspecified without hematuria; K52.9 Noninfective gastroenteritis and colitis, unspecified; E11.65 Type 2 diabetes mellitus with hyperglycemia; I10 Essential (primary) hypertension; N31.9 Neuromuscular dysfunction of bladder, unspecified; Z20.822 Contact with and (suspected) exposure to COVID-19; Z87.19 Personal history of other diseases of the digestive system
CPT/HCPCS: 36415; 74177; 80053; 81001; 82550; 82553; 83690; 83880; 84484; 85025; 87086; 93005; 99284; J2270; J2405; J2930; U0002

== ENCOUNTER 2022-04-26 10:54 | Inpatient (IN) | payer BC ==
[~2022-04-26] VITALS: Ht 175.3 cm; Wt 106.1 kg
[~2022-04-26 10:54] MED LIST changes: +METRONIDAZOLE500 MG PO; +ONDANSETRON ODT4 MG PO
[2022-04-26 11:22] LABS: BASOPHILS % 0.4 % (0.0-1.0); EOSINOPHILS % 0.5 % (0.0-6.0); HEMATOCRIT 35.3 % (38.2-49.6); LYMPHOCYTES # (AUTO) 1.4 (1.0-3.2); LYMPHOCYTES % 17.6 % (18.0-39.1); MEAN CORPUSCULAR HEMOGLOBIN 30.9 pg (28-32); MONOCYTES # (AUTO) 0.5 (0.2-0.8); MONOCYTES % 6.2 % (4.4-11.3); NEUTROPHILS # (AUTO) 5.7 (2.1-6.9); NEUTROPHILS % 73.6 % (38.7-80.0); PLATELET COUNT 179 x10e3/uL (140-360); RED BLOOD COUNT 3.88 x10e6/uL (4.3-5.7); RED CELL DISTRIBUTION WIDTH 11.9 % (11.7-14.4)
[2022-04-26 11:35] LABS: INR 1.02; PROTHROMBIN TIME 14.3 seconds (11.9-14.5)
[2022-04-26 11:45] LABS: ALANINE AMINOTRANSFERASE 34 IU/L (0-55); ALBUMIN 2.3 g/dL (3.5-5.0); ALBUMIN/GLOBULIN RATIO 0.7 (0.8-2.0); ALKALINE PHOSPHATASE 53 IU/L (40-150); ANION GAP 16.7 mmol/L (8-16); BLOOD UREA NITROGEN 9 mg/dL (7-26); BUN/CREATININE RATIO 11 (6-25); CALCIUM 7.7 mg/dL (8.4-10.2); CARBON DIOXIDE 23 mmol/L (22-29); CHLORIDE 99 mmol/L (98-107); CREATINE KINASE 35 IU/L (30-200); CREATININE, SERUM 0.79 mg/dL (0.72-1.25); GLUCOSE 340 mg/dL (74-118); POTASSIUM 4.7 mmol/L (3.5-5.1); SODIUM 134 mmol/L (136-145)
[2022-04-26] MEDS ORDERED: SODIUM CHLORIDE 0.9% 1000ML 1,000 ML IV ONE (11:45)
[2022-04-26] MEDS ORDERED: ONDANSETRON HCL INJ 2MG/ML 2ML 2 MG/ML VIAL IV ONE (12:00)
[2022-04-26] MEDS ORDERED: SCOPOLAMINE1 EACH TD (12:20)
[2022-04-26] MEDS ORDERED: DEXAMETHASONE4 MG PO (12:20)
[2022-04-26] MEDS ORDERED: ATORVASTATIN CA80 MG PO (12:20)
[2022-04-26] MEDS ORDERED: CYCLOBENZAPRINE10 MG PO (12:20)
[2022-04-26] MEDS ORDERED: OXYBUTYNIN CHLOR5 MG PO (12:20)
[2022-04-26] MEDS ORDERED: VITAMIN D250 MCG PO (12:20)
[2022-04-26] MEDS ORDERED: MECLIZINE HCL12.5 MG PO (12:20)
[2022-04-26] MEDS ORDERED: LISINOPRIL20 MG PO (12:20)
[2022-04-26 12:34] LABS: CLARITY,URINE CLOUDY (CLEAR); COLOR,URINE YELLOW (YELLOW)
[2022-04-26 12:35] LABS: LEUKOCYTE ESTERASE ,URINE SMALL (NEGATIVE); NITRITE,URINE POSITIVE (NEGATIVE)
[2022-04-26 12:37] LABS: KETONES,URINE NEGATIVE (NEGATIVE); PROTEIN,URINE DIPSTICK 1+ (NEGATIVE); URINE UROBILINOGEN 0.2 mg/dL (0.2 - 1)
[2022-04-26 13:05] LABS: BACTERIA,URINE MANY /HPF; EPITHELIAL CELLS,URINE MANY /LPF; RBC,URINE >50 /HPF (0-5); WBC,URINE (MAN) >50 /HPF (0-5)
[2022-04-26] MEDS ORDERED: FUROSEMIDE INJ 10 MG/ML 4 ML VIAL IV ONE (14:00)
[2022-04-26] MEDS ORDERED: Vancomycin IV 1 GM in SODIUM CHLORIDE 0.9% 250ML 250 ML IV ONE (14:30)
[2022-04-26] MEDS ORDERED: DICYCLOMINE HCL 20 MG/2 ML VIAL IM ONE (16:15)
[2022-04-26] MEDS ORDERED: Morphine 2mg Syringe 2 MG/ML SYR IV PRN (17:30)
[2022-04-26] MEDS ORDERED: ONDANSETRON HCL INJ 2MG/ML 2ML 2 MG/ML VIAL IV PRN (17:30)
[2022-04-26] MEDS: FAMOTIDINE 20 MG/2 ML VIAL IV SCH (18:25)
[2022-04-26 20:54] LABS: CREATINE KINASE 27 IU/L (30-200)
[2022-04-27] MEDS: SODIUM CHLORIDE 0.9% 1000ML 1,000 ML IV SCH ×3 (01:00→19:54)
[2022-04-27] MEDS ORDERED: SODIUM CHLORIDE 0.9% 1000ML 1,000 ML ONE (01:12)
[2022-04-27 04:04] LABS: BASOPHILS % 0.3 % (0.0-1.0); EOSINOPHILS % 0.6 % (0.0-6.0); HEMATOCRIT 32.6 % (38.2-49.6); HEMOGLOBIN 10.9 g/dL (14.0-18.0); LYMPHOCYTES # (AUTO) 1.5 (1.0-3.2); MEAN CORPUSCULAR HEMOGLOBIN 31.2 pg (28-32); MEAN CORPUSCULAR HGB CONC 33.4 g/dL (31-35); MEAN CORPUSCULAR VOLUME 93.4 fL (81-99); MONOCYTES # (AUTO) 0.4 (0.2-0.8); MONOCYTES % 6.1 % (4.4-11.3); NEUTROPHILS # (AUTO) 5.2 (2.1-6.9); NEUTROPHILS % 71.9 % (38.7-80.0); PLATELET COUNT 182 x10e3/uL (140-360); RED BLOOD COUNT 3.49 x10e6/uL (4.3-5.7)
[2022-04-27 04:20] LABS: ALBUMIN 1.8 g/dL (3.5-5.0); ALBUMIN/GLOBULIN RATIO 0.6 (0.8-2.0); ANION GAP 12.5 mmol/L (8-16); CHOL/HDL RATIO 4.3 (3.9-4.7); CREATININE, SERUM 0.78 mg/dL (0.72-1.25)
[2022-04-27 04:22] LABS: CREATINE KINASE 28 IU/L (30-200)
[2022-04-27 04:23] LABS: POTASSIUM 3.5 mmol/L (3.5-5.1)
[2022-04-27 04:24] LABS: CALCIUM 6.8 mg/dL (8.4-10.2)
[2022-04-27] MEDS: FAMOTIDINE 20 MG/2 ML VIAL IV SCH ×2 (05:45→17:27)
[2022-04-27 19:00] VITALS: BP 126/91
[2022-04-27 20:00] VITALS: BP 117/76
[2022-04-27] MEDS ORDERED: METFORMIN HCL500 MG PO (23:33)
[2022-04-28] VITALS (8 sets, daily range): BP systolic 125–136; BP diastolic 76–96
[2022-04-28] MEDS: FAMOTIDINE 20 MG/2 ML VIAL IV SCH ×2 (06:08→17:18)
[2022-04-28] MEDS: SODIUM CHLORIDE 0.9% 1000ML 1,000 ML IV SCH ×2 (06:08→19:00)
[2022-04-28] MEDS ORDERED: METFORMIN HCL 500 MG TAB PO SCH (08:00)
[2022-04-28 09:06] LABS: BASOPHILS % 0.2 % (0.0-1.0); EOSINOPHILS % 0.5 % (0.0-6.0); HEMATOCRIT 33.5 % (38.2-49.6); HEMOGLOBIN 11.2 g/dL (14.0-18.0); LYMPHOCYTES # (AUTO) 1.3 (1.0-3.2); LYMPHOCYTES % 15.6 % (18.0-39.1); MEAN CORPUSCULAR HEMOGLOBIN 31.2 pg (28-32); MEAN CORPUSCULAR HGB CONC 33.4 g/dL (31-35); MEAN CORPUSCULAR VOLUME 93.3 fL (81-99); MONOCYTES # (AUTO) 0.4 (0.2-0.8); NEUTROPHILS # (AUTO) 6.2 (2.1-6.9); NEUTROPHILS % 77.5 % (38.7-80.0); PLATELET COUNT 199 x10e3/uL (140-360); RED BLOOD COUNT 3.59 x10e6/uL (4.3-5.7); RED CELL DISTRIBUTION WIDTH 11.8 % (11.7-14.4)
[2022-04-28] MEDS: METFORMIN HCL 500 MG TAB PO SCH ×2 (09:06→16:50)
[2022-04-28 09:55] LABS: ANION GAP 13.3 mmol/L (8-16); CALCIUM 8.1 mg/dL (8.4-10.2); CREATININE, SERUM 0.86 mg/dL (0.72-1.25); MAGNESIUM 1.7 MG/DL (1.3-2.1); PHOSPHORUS 2.6 MG/DL (2.3-4.7); POTASSIUM 4.3 mmol/L (3.5-5.1)
[2022-04-28] MEDS ORDERED: MAGNESIUM SULF 1GRAM/DEXTROSE 100 ML IV ONE (10:45)
[2022-04-28] MEDS ORDERED: ACETAMINOPHEN 325 MG TAB PO PRN (11:15)
[2022-04-28] MEDS ORDERED: METOPROLOL TARTRATE INJ 1 MG/ML VIAL IV PRN (11:15)
[2022-04-28] MEDS ORDERED: TEMAZEPAM 15 MG CAP PO PRN (11:15)
[2022-04-28] MEDS ORDERED: SCOPOLAMINE 1 MG PATCH TD SCH (12:00)
[2022-04-28] MEDS: MECLIZINE HCL 12.5 MG TAB PO SCH ×2 (15:00→22:06)
[2022-04-28] MEDS ORDERED: CYCLOBENZAPRINE HCL 10 MG TAB PO SCH (17:00)
[2022-04-28] MEDS ORDERED: NON-FORMULARY MEDICATION (Methenamine Hippurate 1 GM) PO SCH (17:00)
[2022-04-28] MEDS ORDERED: OXYBUTYNIN CHLORIDE 5 MG TAB PO SCH (17:00)
[2022-04-28] MEDS ORDERED: ACETAMINOPHEN325 M1 PO (20:58)
[2022-04-28] MEDS ORDERED: ONDANSETRON ODT4 MG PO (20:58)
[2022-04-28] MEDS ORDERED: CEFUROXIME500 MG PO (20:58)
[2022-04-28] MEDS ORDERED: ATORVASTATIN 40 MG TAB PO SCH (21:00)
[2022-04-28] MEDS ORDERED: LISINOPRIL 20 MG TAB PO SCH (21:00)
[2022-04-29] MEDS ORDERED: DEXAMETHASONE 4 MG TAB PO SCH (07:30)
[2022-04-29] MEDS ORDERED: ERGOCALCIFEROL 50,000 UNIT CAP PO SCH (09:00)
== END 2022-04-28 22:52 | disposition home or self-care (01) | DRG 699 ==
LOC: ER 11:33 → ERHOLD 17:20 → MED/SURG2 04-27 18:02
PROVIDERS: ADMIT Internal Medicine; ATTEND Internal Medicine
DX: T83.510A Infection and inflammatory reaction due to cystostomy catheter, initial encounter (principal); N39.0 Urinary tract infection, site not specified; Z16.24 Resistance to multiple antibiotics; I10 Essential (primary) hypertension; E11.42 Type 2 diabetes mellitus with diabetic polyneuropathy; E87.6 Hypokalemia; E11.65 Type 2 diabetes mellitus with hyperglycemia; N31.9 Neuromuscular dysfunction of bladder, unspecified; R09.02 Hypoxemia; K57.90 Diverticulosis of intestine, part unspecified, without perforation or abscess without bleeding; B96.1 Klebsiella pneumoniae [K. pneumoniae] as the cause of diseases classified elsewhere; E83.42 Hypomagnesemia; Z20.822 Contact with and (suspected) exposure to COVID-19; Z90.49 Acquired absence of other specified parts of digestive tract; Z86.19 Personal history of other infectious and parasitic diseases; N40.0 Benign prostatic hyperplasia without lower urinary tract symptoms; R31.29 Other microscopic hematuria; Z79.84 Long term (current) use of oral hypoglycemic drugs; R19.7 Diarrhea, unspecified
CPT/HCPCS: 36415; 71045; 74177; 80048; 80053; 80061; 81001; 82550; 82553; 82948; 83735; 84100; 84484; 85025; 85610; 85730; 87040; 87086; 87186; 93005; 94799; 99284; J0500; J0690; J1940; J2405; J2543; J3370; J3475; J7030; J7050

== ENCOUNTER 2023-12-05 01:35 | Emergency (ER) | payer BC, OTHER ==
[~2023-12-05] VITALS: Ht 175.3 cm; Wt 109.8 kg
[~2023-12-05 01:35] MED LIST changes: +ACETAMINOPHEN325 M1 PO; +ATORVASTATIN CA80 MG PO; +CEFUROXIME500 MG PO; +CYCLOBENZAPRINE10 MG PO; +DEXAMETHASONE4 MG PO; +LISINOPRIL20 MG PO; +MECLIZINE HCL12.5 MG PO; +OXYBUTYNIN CHLOR5 MG PO; +SCOPOLAMINE1 EACH TD; +VITAMIN D250 MCG PO
[2023-12-05] MEDS ORDERED: CEFDINIR300 MG PO (02:11)
[2023-12-05 02:15] VITALS: BP 142/83; PULSE 86; RESP 18; TEMP 98.7; O2SAT 97
== END 2023-12-05 02:15 | disposition home or self-care (01) ==
LOC: FSED 01:44
DX: Z46.6 Encounter for fitting and adjustment of urinary device (principal); T83.090A Other mechanical complication of cystostomy catheter, initial encounter; N39.0 Urinary tract infection, site not specified; I10 Essential (primary) hypertension; E11.9 Type 2 diabetes mellitus without complications; N31.9 Neuromuscular dysfunction of bladder, unspecified; Z87.19 Personal history of other diseases of the digestive system
CPT/HCPCS: 81003; 87086; 87186; 99282

== ENCOUNTER 2024-06-05 14:34 | Emergency (ER) | payer BC, OTHER ==
[~2024-06-05] VITALS: Ht 175.3 cm; Wt 109.8 kg
[~2024-06-05 14:34] MED LIST changes: +ASCORBIC ACID500 MG PO; +CEFDINIR300 MG PO; +FAMOTIDINE20 MG PO
[2024-06-05 15:30] VITALS: TEMP 98.1
[2024-06-05 17:02] LABS: CLARITY,URINE CLOUDY (CLEAR); COLOR,URINE YELLOW (YELLOW); LEUKOCYTE ESTERASE ,URINE SMALL (NEGATIVE); NITRITE,URINE POSITIVE (NEGATIVE); PH,URINE 7 (5 - 7)
[2024-06-05 17:03] LABS: GLUCOSE, URINE NEGATIVE (NEGATIVE); PROTEIN,URINE DIPSTICK 2+ (NEGATIVE)
[2024-06-05 17:04] LABS: BILIRUBIN,URINE NEGATIVE (NEGATIVE); KETONES,URINE NEGATIVE (NEGATIVE); URINE UROBILINOGEN 0.2 mg/dL (0.2 - 1)
[2024-06-05 17:08] LABS: BACTERIA,URINE MODERATE /HPF; WBC,URINE (MAN) 21-50 /HPF (0-5)
[2024-06-05] MEDS ORDERED: CIPROFLOXACIN 400 MG/D5W 200ML 200 ML IV SCH (17:15)
[2024-06-05] MEDS: HYDROCODONE/APAP 5MG-325MG TAB PO ONE (17:19)
[2024-06-05 17:20] VITALS: PULSE 76; RESP 16
[2024-06-05] MEDS ORDERED: CIPRO500 MG PO (17:35)
[2024-06-05] MEDS: CIPROFLOXACIN 500 MG TAB PO SCH (17:39)
[2024-06-05 18:10] VITALS: BP 137/86; PULSE 76; RESP 16; O2SAT 97
== END 2024-06-05 18:00 | disposition home or self-care (01) ==
LOC: ER 14:54
DX: T83.090A Other mechanical complication of cystostomy catheter, initial encounter (principal); N39.0 Urinary tract infection, site not specified; N31.9 Neuromuscular dysfunction of bladder, unspecified; I10 Essential (primary) hypertension; E11.9 Type 2 diabetes mellitus without complications; E78.5 Hyperlipidemia, unspecified; J44.9 Chronic obstructive pulmonary disease, unspecified; Z86.73 Personal history of transient ischemic attack (TIA), and cerebral infarction without residual deficits; Z87.19 Personal history of other diseases of the digestive system
CPT/HCPCS: 81001; 87086; 87186; 99282